=== PATIENT | female | born 2005 | race Asian ===

== ENCOUNTER 2024-02-21 00:57 | Emergency (ER) | payer MEDICAID, SELFPAY ==
[2024-02-21 00:59] VITALS: BP 98/66
--- NOTE | 2024-02-21 01:13 | ED.GENMED ---
Addendum entered and electronically signed by Remington Rizo PA-C 02/24/24 07:15:
Urine culture shows Klebsiella ESBL. This was resistant to the Keflex she was placed on. Happens to be sensitive to Augmentin. Prescription for Augmentin was called in. Spoke with the patient's regarding these results
Original Note:
History of Present Illness
<KENDY Swenson - Last Filed: 02/21/24 17:59>
General
Chief Complaint: Problems
Source: patient, spouse and doctor of veterinary medicine (Spouse)
Exam Limitations: other (Language barrier)
Time Seen by Provider: 02/21/24 01:04
History of Present Illness
History of Present Illness:
This is a 18 year old female that comes in with c/o right lower abd pain. States that she started with pain about 1.5 hours ago. States that she took Tylenol 650mg at home. States that it is a cramping like when she had a period. Denies any
bleeding. States that her last period was Oct 25. Denies any fever, chills, chest pain, SOB, nausea, vomiting, diarrhea, headache, dizziness, urinary burning.
Past History
<KENDY Swenson - Last Filed: 02/21/24 17:59>
Past History
ED Past Medical History: None; Negative Asthma, HTN, Hypercholesterolemia or NIDDM
ED Past Surgical History: None
Social History
Tobacco: Non-smoker
Alcohol: None
Personal:
Living: with family
Review of Systems
<KENDY Swenson - Last Filed: 02/21/24 17:59>
Review of Systems
All Other Systems: ROS reviewed and negative except as documented in HPI and ROS
Constitutional: Reports no symptoms; Denies fever or chills
EENT: Reports no symptoms
Respiratory: Reports no symptoms; Denies cough or trouble breathing
Cardiac: Reports no symptoms; Denies chest pain
ABD/GI: Reports abdominal pain; Denies nausea, vomiting or diarrhea
: Reports no symptoms; Denies dysuria, frequency, urgency or bleeding
Musculoskeletal: Reports no symptoms
Skin: Reports no symptoms
Neurological: Reports no symptoms; Denies dizzy or headache
Psychiatric: Reports no symptoms
Phy Exam
<KENDY Swenson - Last Filed: 02/21/24 17:59>
General Physical Exam
General Presentation: mild distress
General age: appears stated age
General Skin: warm and dry
General Habitus: normal
General Mental: alert
General Hydration: appears well hydrated
ENT Exam
ENT Exam: TM's normal, pharynx normal and neck supple
Eye Exam
Eye Exam: EOMI
Cardiovascular Exam
Cardiovascular Exam: regular rate/rhythm, no edema, no murmur and normal peripheral pulses
Pulmonary Exam
Pulmonary Exam: lungs clear, no respiratory distress, no rales, chest non tender, no crackles, no rhonchi, no wheezing and no cough
Gastrointestinal Exam
Gastrointestinal Exam: normal bowel sounds, non tender, soft, no organomegaly, no pulsatile mass and non distended
Musculoskeletal Exam
Musculoskeletal Exam: full ROM and no edema
Skin Exam
Skin Exam: normal color, warm/dry, no rash and no petechia
Psychiatric Exam
Psychiatric Exam: normal mood/affect
Course
<KENDY Swenson - Last Filed: 02/21/24 17:59>
Orders/Labs/Results
Orders:
Orders
02/21/24 01:12
0.9% Sodium Chloride 1000 ml [Nss] 1,000 ml IV BOLUS
US Limited Urgent
Reason For Exam: rIGHT LOWER ABD PAIN
02/21/24 01:19
US Abdomen - Appendix Only Urgent
Comment:
Reason For Exam: Right lower abd pain
02/21/24 01:30
Blood Group&Type Urgent
Beta HCG Quantitative Urgent
Is this a screen?: No
Complete Blood Count/With Diff Urgent
Comprehensive Metabolic Panel Urgent
02/21/24 02:10
ABO2 Urgent
BBK Wristband Number:
Associate notified that ABO2 has been ordered: [id number]
Date: 02/21/24
Time: 01:39
[employer]S Le[employer] Dress Belt Maker ID: [id number]
02/21/24 02:50
Renal & Bladder US [US Renal With Bladder] Urgent
Comment:
Reason For Exam: Right sided abd pain
02/21/24 03:58
Urinalysis Reflex To Culture Urgent
Specimen Description:
Date Specimen was Collected: 02/21/24
Time Specimen was Collected: 01:15
Urine Microscopic Reflex Cult Urgent
Urine Culture Urgent
ALAINA Source: U
Specimen Description:
Date Specimen was Collected: 02/21/24
Time Specimen was Collected: 01:15
02/21/24 05:00
Cephalexin Monohydrate [Keflex] 500 mg PO NOW STA
Abnormal Lab Results
02/21/24 02/21/24
01:30 03:58
RBC 3.53 L 10^6/uL
(4.20-5.40)
Hgb 11.8 L g/dL
(12.0-16.0)
Hct 32.5 L %
(37.0-47.0)
MCH 33.4 H pg
(27.0-31.0)
Absolute Neuts (auto) 7.4 H 10^3/uL
(1.4-6.5)
Absolute Monos (auto) 0.9 H 10^3/uL
(0.1-0.6)
Lymphocytes % 16.6 L %
(20.5-51.1)
Carbon Dioxide 21 L mmol/L
(22-30)
Creatinine 0.4 L mg/dL
(0.6-1.0)
Total Protein 5.9 L g/dl
(6.3-8.2)
Albumin 3.4 L g/dl
(3.5-5.0)
Ur Occult Blood Reflex 4+ A
(Negative)
Urine Nitrite (Reflex) Positive A
(Negative)
Leukocyte Esterase Rfl 2+ A
(Negative)
Urine RBC 16-20 A /HPF
(0-2)
Urine WBC (Reflex) 50-60 A /HPF
(0-5)
Urine Bacteria (Reflex) Many A
(Negative)
Urine Albumin (Reflex) 1+ A
(Neg - Trace)
02/21/24 01:30
02/21/24 01:30
H/H slightly low, carbon dioxide slightly low. Total protein Slightly low. Albumin very slightly low. B positive,
Vital Signs
Initial and Last Documented VS:
Initial Vital Signs
Temp Pulse Resp BP Pulse Ox
97.6 F 92 20 98/66 98
02/21/24 00:59 02/21/24 00:59 02/21/24 00:59 02/21/24 00:59 02/21/24 00:59
Last Documented Vital Signs
Temp Pulse Resp BP Pulse Ox
97.6 F 88 16 99/67 99
02/21/24 00:59 02/21/24 05:15 02/21/24 05:15 02/21/24 05:15 02/21/24 05:15
<Dori Cheng DO - Last Filed: 02/21/24 06:29>
Orders/Labs/Results
Orders:
Orders
02/21/24 01:12
0.9% Sodium Chloride 1000 ml [Nss] 1,000 ml IV BOLUS
US Limited Urgent
Reason For Exam: rIGHT LOWER ABD PAIN
02/21/24 01:19
US Abdomen - Appendix Only Urgent
Comment:
Reason For Exam: Right lower abd pain
02/21/24 01:30
Blood Group&Type Urgent
Beta HCG Quantitative Urgent
Is this a screen?: No
Complete Blood Count/With Diff Urgent
Comprehensive Metabolic Panel Urgent
02/21/24 02:10
ABO2 Urgent
BBK Wristband Number:
Associate notified that ABO2 has been ordered: [id number]
Date: 02/21/24
Time: 01:39
Men'S Leather Dress Belt Maker ID: [id number]
02/21/24 02:50
Renal & Bladder US [US Renal With Bladder] Urgent
Comment:
Reason For Exam: Right sided abd pain
02/21/24 03:58
Urinalysis Reflex To Culture Urgent
Specimen Description:
Date Specimen was Collected: 02/21/24
Time Specimen was Collected: 01:15
Urine Microscopic Reflex Cult Urgent
Urine Culture Urgent
ALAINA Source: U
Specimen Description:
Date Specimen was Collected: 02/21/24
Time Specimen was Collected: 01:15
02/21/24 05:00
Cephalexin Monohydrate [Keflex] 500 mg PO NOW STA
Abnormal Lab Results
02/21/24 02/21/24
01:30 03:58
RBC 3.53 L 10^6/uL
(4.20-5.40)
Hgb 11.8 L g/dL
(12.0-16.0)
Hct 32.5 L %
(37.0-47.0)
MCH 33.4 H pg
(27.0-31.0)
Absolute Neuts (auto) 7.4 H 10^3/uL
(1.4-6.5)
Absolute Monos (auto) 0.9 H 10^3/uL
(0.1-0.6)
Lymphocytes % 16.6 L %
(20.5-51.1)
Carbon Dioxide 21 L mmol/L
(22-30)
Creatinine 0.4 L mg/dL
(0.6-1.0)
Total Protein 5.9 L g/dl
(6.3-8.2)
Albumin 3.4 L g/dl
(3.5-5.0)
Ur Occult Blood Reflex 4+ A
(Negative)
Urine Nitrite (Reflex) Positive A
(Negative)
Leukocyte Esterase Rfl 2+ A
(Negative)
Urine RBC 16-20 A /HPF
(0-2)
Urine WBC (Reflex) 50-60 A /HPF
(0-5)
Urine Bacteria (Reflex) Many A
(Negative)
Urine Albumin (Reflex) 1+ A
(Neg - Trace)
02/21/24 01:30
02/21/24 01:30
Vital Signs
Initial and Last Documented VS:
Initial Vital Signs
Temp Pulse Resp BP Pulse Ox
97.6 F 92 20 98/66 98
02/21/24 00:59 02/21/24 00:59 02/21/24 00:59 02/21/24 00:59 02/21/24 00:59
Last Documented Vital Signs
Temp Pulse Resp BP Pulse Ox
97.6 F 88 16 99/67 99
02/21/24 00:59 02/21/24 05:15 02/21/24 05:15 02/21/24 05:15 02/21/24 05:15
Information
Weeks gestation: Weeks: (16 6/7 weeks)
Location: Location: ([facility])
<KENDY Swenson - Last Filed: 02/21/24 17:59>
MDM/Problems Addressed
Differential Diagnosis Includes:
Ruptured ovarian cyst. Muscle stretching, Appendicitis
MDM/Problems Addressed:
This is a 18 year old female that comes in with c/o right lower abd pain. Patient States that this started about 1.5 hours before coming. States that her last Period was Oct 25. Denies any vaginal bleeding.
Will check labs and get US of appendix and Pelvic ultrasound. Denies any pain with abd palpation. States that the pain is inside.
Chronic conditions affecting care:
NA
Acute Exacerbation and/or Progression of Chronic Illness:
Na
<KENDY Swenson - Last Filed: 02/21/24 17:59>
*Pulse Oximetry
Patient hypoxic: no
*EKG
Interpreted by ED Provider?: NA
Rate: EKG- N/A
*Doctor Of Veterinary Medicine Interpretation
Rate: Doctor Of Veterinary Medicine- N/A
*Critical Care Note
Total Time (30-74mins, 75-104mins- exclusive of procedures): Not Applicable
<Dori Cheng DO - Last Filed: 02/21/24 06:29>
*Radiology
Radiology exam reviewed: radiology read reviewed
ED Attending Note
<KENDY Swenson - Last Filed: 02/21/24 17:59>
-
Portions of this chart may have been created with voice recognition software.� Occasional wrong word or��sound alike� substitutions may have occurred due to the inherent limitations of voice recognition software.
<Dori Cheng DO - Last Filed: 02/21/24 06:29>
ED Attending Note
Patient seen and examined by attending physician: Yes
I performed the substantive portion of visit, reviewed & personally made and approve the management plan that is documented in note by myself or DENISA.: Yes
ED Attending Note:
This is a 18-year-old female, 1 para 0 currently 16 weeks, 6 days with first day last menstrual period October 25.
She presents with right lower quadrant pain that began somewhat abruptly tonight, nonradiating, worse with movement. No other associated symptoms.
She follows with [facility], has had 1 initial visit and has a follow-up visit scheduled for later today.
She has not had a fever nor chills. No nausea or vomiting. No diarrhea or constipation. No back pain no flank pain. She denies dysuria nor urgency nor hematuria. She does admit to intermittent urinary frequency.
Overall nontoxic in appearance. Sleeps when undisturbed.
Vital signs within normal limits.
is accompanying and he is interpreting for patient.
Abdomen is soft, nondistended without appreciable tenderness. No CVA tenderness. Fundus palpable 3 to 4 cm below umbilicus.
Labs thus far unremarkable.
ultrasound shows single viable IUP. Size consistent with dates. Normal ovaries bilaterally with good flow demonstrated bilaterally. No adnexal masses nor cyst. No pelvic free fluid.
Renal ultrasound is unremarkable, no hydronephrosis nor renal mass and bilateral ureteral jets are visualized.
Right lower quadrant�appendix not visualized. No regional mass nor fluid collection nor appreciable free fluid.
It is reassuring that patient has no appreciable abdominal tenderness on exam. Appendicitis is unlikely.
There is still some concern for UTI. Urinalysis is pending.
Other consideration is round ligament pain.
05:00
Urinalysis consistent with UTI.
Pt continues to appear comfortable with no appreciable abdominal tenderness on exam.
Will treat with a course of Keflex.
Urine culture is pending.
Discussed importance of staying well hydrated on a daily basis.
Follow u with [facility] today as already scheduled.
Discharge Plan
Departure
Patient Disposition: Home (Routine Discharge)
Date of Disposition: 02/21/24
Time of Disposition: 05:13
Patient with high blood pressure during this ER visit?: No
Condition: Good
Discharge Problem:
Second trimester , Abdominal pain during , Urinary tract infection affecting
Instructions: Urinary tract infections in
Prescriptions:
New
cephalexin 500 mg capsule
500 mg PO TID 7 Days Qty: 21 0RF
Referrals:
Sandra Cabral MD [Family Provider] -
Activity Restrictions/Additional Instructions:
Follow up with your test driver today as already scheduled.
Interventions
Interventions:
*Risk Screen - Suicide Last Done: 02/21/24 00:59
*General Assessment Last Done: 02/21/24 01:43
*Neglect/Abuse Screening Last Done: 02/21/24 00:59
ED- Fall Risk Assessment Last Done: 02/21/24 05:25
*ED COVID-19 Vaccine History Last Done: 02/21/24 01:43
*Nursing Disposition Last Done: 02/21/24 05:25
ZW-Klsvsr-Qrrlbiwbyx Assessment Last Done: 02/21/24 01:46
ED-Female Genitourinary Assessment Last Done: 02/21/24 01:47
Discharge Date and Time
Discharge Date/Time: 02/21/24 05:25
Print Language: DANISH
[2024-02-21] MEDS: NSS 1000 IV (01:31)
[2024-02-21 01:38] LABS: % Basophils 0.2 % (0-2); % Eosinophils 0.9 % (0-6); % Immature Granulocytes 0.3 % (0-0.5); % Lymphocytes 16.6 % (20.5-51.1); % Monocytes 8.7 % (1.7-9.3); % Neutrophils 73.3 % (42.2-75.2); Absolute Eosinophils 0.1 10^3/uL (0-0.7); Absolute Lymphocytes 1.7 10^3/uL (1.2-3.4); Absolute Monocytes 0.9 10^3/uL (0.1-0.6); Absolute Neutrophils 7.4 10^3/uL (1.4-6.5); Hematocrit 32.5 % (37.0-47.0); Hemoglobin 11.8 g/dL (12.0-16.0); Mean Corp Hgb Conc. 36.3 g/dL (33.0-37.0); Mean Corpuscular Hgb 33.4 pg (27.0-31.0); Mean Corpuscular Volume 92.1 fL (81.0-99.0); Mean Platelet Volume 9.3 fL (7.4-10.4); Nucleated Red Blood Cells % 0 %; Platelet Count 277 10^3/uL (130-400); Red Blood Cell Count 3.53 10^6/uL (4.20-5.40); Red Cell Dist. Width 12.3 % (11.5-14.5); White Blood Cell Count 10.1 10^3/uL (4.8-10.8)
[2024-02-21 01:53] LABS: ALT (SGPT) 17 U/L (0-35); AST (SGOT) 21 U/L (14-36); Albumin 3.4 g/dl (3.5-5.0); Alkaline Phosphatase 73 U/L (38-126); Blood Urea Nitrogen 9 mg/dl (7-17); Carbon Dioxide 21 mmol/L (22-30); Chloride 106 mmol/L (98-107); Glucose 87 mg/dl (70-99); Potassium 3.5 mmol/L (3.5-5.1); Sodium 136 mmol/L (135-145); Total Bilirubin 0.3 mg/dl (0.2-1.3); Total Protein 5.9 g/dl (6.3-8.2); eGFR > 60.00
[2024-02-21 03:45] VITALS: BP 91/52
[2024-02-21 04:21] LABS: Urine Albumin 1+ (Neg - Trace); Urine Bilirubin Negative (Negative); Urine Character Slightly Cloudy (Clear); Urine Color Yellow; Urine Glucose Negative (Negative); Urine Ketone Negative (Negative); Urine Leukocyte 2+ (Negative); Urine Nitrite Positive (Negative); Urine Occult Blood 4+ (Negative); Urine Specific Gravity 1.015 (<1.030); Urine Urobilinogen Negative (Neg - 1+)
[2024-02-21 04:42] LABS: Urine Red Blood Cell 16-20 /HPF (0-2); Urine White Cell 50-60 /HPF (0-5)
[2024-02-21 04:43] LABS: Urine Bacteria Many (Negative)
[2024-02-21] MEDS: KEFLEX 500 MG PO (05:08)
[2024-02-21 05:15] VITALS: BP 99/67
== END 2024-02-21 05:25 | disposition home or self-care (01) ==
LOC: EMR 00:57
PROVIDERS: Clinical Nurse Specialist Family Health; EMERGENCY PHYSICIAN Emergency Medicine; FAMILY PHYSICIAN Family Medicine
DX: O23.42 Unspecified infection of urinary tract in pregnancy, second trimester (principal); N39.0 Urinary tract infection, site not specified; O26.892 Other specified pregnancy related conditions, second trimester; R10.31 Right lower quadrant pain; Z3A.16 16 weeks gestation of pregnancy
CPT/HCPCS: 96360; 99284; 76705; 76770; 76815; 80053; 81003; 81015; 84702; 85025; 86900; 86901; 87077; 87086; 87186

== ENCOUNTER 2024-07-22 16:44 | Observation (INO) | payer MEDICAID, SELFPAY ==
[2024-07-22 16:51] VITALS: BMI 24.9
[2024-07-22 16:54] VITALS: BP 109/73
[2024-07-22 18:30] LABS: % Basophils 0.2 % (0-2); % Immature Granulocytes 0.5 % (0-0.5); % Lymphocytes 7.7 % (20.5-51.1); % Monocytes 8.7 % (1.7-9.3); % Neutrophils 82.9 % (42.2-75.2); Absolute Immature Granulocytes 0.1 10^3/uL (0-0.05); Absolute Lymphocytes 1.3 10^3/uL (1.2-3.4); Absolute Monocytes 1.4 10^3/uL (0.1-0.6); Absolute Neutrophils 13.5 10^3/uL (1.4-6.5); Hematocrit 35.6 % (37.0-47.0); Hemoglobin 12.5 g/dL (12.0-16.0); Mean Corp Hgb Conc. 35.1 g/dL (33.0-37.0); Mean Corpuscular Hgb 31.3 pg (27.0-31.0); Mean Corpuscular Volume 89.2 fL (81.0-99.0); Mean Platelet Volume 9.6 fL (7.4-10.4); Nucleated Red Blood Cells % 0 %; Platelet Count 269 10^3/uL (130-400); Red Blood Cell Count 3.99 10^6/uL (4.20-5.40); Red Cell Dist. Width 14.3 % (11.5-14.5); White Blood Cell Count 16.3 10^3/uL (4.8-10.8)
[2024-07-22 18:30] LABS: Urine Albumin 2+ (Neg - Trace); Urine Bilirubin Negative (Negative); Urine Character Clear (Clear); Urine Color Yellow; Urine Glucose Negative (Negative); Urine Ketone 3+ (Negative); Urine Leukocyte 3+ (Negative); Urine Nitrite Negative (Negative); Urine Occult Blood Negative (Negative); Urine Urobilinogen 1+ (Neg - 1+)
[2024-07-22 18:42] LABS: ALT (SGPT) 24 U/L (0-35); AST (SGOT) 30 U/L (14-36); Albumin 3.5 g/dl (3.5-5.0); Alkaline Phosphatase 217 U/L (38-126); Blood Urea Nitrogen 7 mg/dl (7-17); Calcium 9.4 mg/dl (8.4-10.2); Carbon Dioxide 17 mmol/L (22-30); Chloride 106 mmol/L (98-107); Estimated Creatinine Clearance > 125 ml/min; Glucose 69 mg/dl (70-99); Potassium 3.8 mmol/L (3.5-5.1); Sodium 133 mmol/L (135-145); Total Bilirubin 0.8 mg/dl (0.2-1.3); Total Protein 6.4 g/dl (6.3-8.2); eGFR > 60.00
[2024-07-22 18:46] LABS: Urine Mucus Few; Urine Squamous Cell 26-30 /LPF (Few)
[2024-07-22 18:47] LABS: Urine Bacteria Few (Negative); Urine Red Blood Cell 0-2 /HPF (0-2)
[2024-07-22 19:52] LABS: COVID-19 Antigen Negative (Negative)
[2024-07-22] MEDS: TYLENOL 650 MG PO (20:00)
[2024-07-22] MEDS: LR 1000 IV (20:45)
== END 2024-07-22 23:15 | disposition home or self-care (01) ==
LOC: LDRP 16:44
PROVIDERS: ADMITTING PHYSICIAN Obstetrics & Gynecology
DX: O98.513 Other viral diseases complicating pregnancy, third trimester (principal); B34.9 Viral infection, unspecified; Z3A.38 38 weeks gestation of pregnancy; M54.9 Dorsalgia, unspecified; R50.9 Fever, unspecified; R53.1 Weakness; R51.9 Headache, unspecified; Z60.3 Acculturation difficulty
CPT/HCPCS: 36415; 80053; 81003; 81015; 85025; 86850; 86900; 86901; 87077; 87086; 87147; 87502; 87811; G0378

== ENCOUNTER 2024-07-24 09:39 | Inpatient (IN) | payer OTHER, SELFPAY ==
[2024-07-24 09:52] VITALS: BP 118/69; BMI 24.8
[2024-07-24] MEDS: STADOL 1 MG IV (12:44)
[2024-07-24] MEDS: LR 1000 IV (12:44)
[2024-07-24 13:12] LABS: % Basophils 0.3 % (0-2); % Eosinophils 0.1 % (0-6); % Immature Granulocytes 0.5 % (0-0.5); % Lymphocytes 10.2 % (20.5-51.1); % Monocytes 6.7 % (1.7-9.3); % Neutrophils 82.2 % (42.2-75.2); Absolute Immature Granulocytes 0.1 10^3/uL (0-0.05); Absolute Lymphocytes 1.1 10^3/uL (1.2-3.4); Absolute Monocytes 0.7 10^3/uL (0.1-0.6); Hematocrit 36.4 % (37.0-47.0); Hemoglobin 12.4 g/dL (12.0-16.0); Mean Corp Hgb Conc. 34.1 g/dL (33.0-37.0); Mean Corpuscular Hgb 31.2 pg (27.0-31.0); Mean Corpuscular Volume 91.7 fL (81.0-99.0); Mean Platelet Volume 10.1 fL (7.4-10.4); Nucleated Red Blood Cells % 0 %; Platelet Count 262 10^3/uL (130-400); Red Blood Cell Count 3.97 10^6/uL (4.20-5.40); Red Cell Dist. Width 14.4 % (11.5-14.5); White Blood Cell Count 10.9 10^3/uL (4.8-10.8)
[2024-07-24 13:18] LABS: Urine Albumin 1+ (Neg - Trace); Urine Bilirubin Negative (Negative); Urine Character Clear (Clear); Urine Color Yellow; Urine Glucose Negative (Negative); Urine Ketone 3+ (Negative); Urine Leukocyte 1+ (Negative); Urine Nitrite Negative (Negative); Urine Occult Blood 1+ (Negative); Urine Urobilinogen Negative (Neg - 1+)
[2024-07-24 15:15] LABS: Urine Squamous Cell >30 /LPF (Few)
[2024-07-24 15:16] LABS: Urine Amorphous Seen
[2024-07-24 15:17] LABS: Urine Red Blood Cell 0-2 /HPF (0-2); Urine White Cell 0-2 /HPF (0-5)
[2024-07-24] MEDS: SUBLIMAZE 100 MCG EPIDURAL (16:11)
[2024-07-24] MEDS: FENTANYL/BUPIVACAINE 100 EPIDURAL (16:11)
[2024-07-24] MEDS: TYLENOL 1000 MG PO (22:22)
[2024-07-24] MEDS: BICITRA 30 ML PO (22:40)
[2024-07-24] MEDS: ANCEF 10 IV (22:40)
[2024-07-24 23:13] LABS: Cord ABG Comment CORD BLOOD
[2024-07-24 23:15] LABS: B.E. Cord ABG -3.9 mMOL/L; HCO3 Cord ABG 23.5 mmol/L; O2 Saturation % Cord ABG 44.6 %; PCO2 Cord ABG 50 mmHg; PO2 Cord ABG 22 mmHg; pH Cord ABG 7.28
[2024-07-24 23:17] LABS: B.E. Cord ABG -5.6 mMOL/L; HCO3 Cord ABG 21.6 mmol/L; O2 Saturation % Cord ABG 59.5 %; PCO2 Cord ABG 47 mmHg; PO2 Cord ABG 32 mmHg; pH Cord ABG 7.27
[2024-07-24 23:47] VITALS: BP 109/54
[2024-07-25] VITALS: BP 116/64
[2024-07-25 00:04] VITALS: BP 106/69
[2024-07-25] MEDS: MORPHINE SULFATE 2 MG IV ×2 (00:06→02:21)
[2024-07-25] MEDS: BENADRYL 25 MG IV (00:07)
[2024-07-25 00:15] VITALS: BP 112/68
[2024-07-25 00:21] VITALS: BP 110/69
[2024-07-25] MEDS: TORADOL 15 MG IV ×3 (05:08→17:38)
[2024-07-25 05:32] LABS: Hematocrit 31.5 % (37.0-47.0); Mean Corp Hgb Conc. 34.9 g/dL (33.0-37.0); Mean Corpuscular Hgb 31.5 pg (27.0-31.0); Mean Corpuscular Volume 90.3 fL (81.0-99.0); Mean Platelet Volume 9.8 fL (7.4-10.4); Platelet Count 216 10^3/uL (130-400); Red Blood Cell Count 3.49 10^6/uL (4.20-5.40); Red Cell Dist. Width 14.2 % (11.5-14.5)
--- NOTE | 2024-07-25 07:38 | W.PN.ANS.POP ---
Anesthesia Post Operative
- Anesthesia Post Op Note
Vital Signs Stable-See Nursing Note: Yes
Airway Patent: Yes
Adequate Pain Control: Yes
Change in Mental Status: No
Current Postoperative Nausea & Vomiting: No
Anesthesia Complications: No
General Anesthetic Recall: No (n/a c section)
Unplanned Admission: No
Post Op Hydration Adequate: Yes
[2024-07-25] MEDS: PRENATAL PLUS PO (11:18)
[2024-07-25 14:39] LABS: Syphilis/T. pallidum Ab Reflex Negative (Negative)
[2024-07-25] MEDS: PERCOCET 5/325 1 TABLET PO ×2 (15:31→21:09)
[2024-07-26] MEDS: TORADOL 15 MG IV (00:25)
--- NOTE | 2024-07-26 04:20 | DOWNTIME ---
Addendum entered and electronically signed by Bea Gonzales RN 07/26/24 14:04:
Correction: Downtime was 07/26/2024 from 0100 to 07/26/2024 at 0415
Original Note:
There was a Stylewhile Client Route Process Administrator Downtime on 07/25/2024 from 0100 to 07/26/2024 at 0415. Downtime documentation of patient's care, including medication administrations, has been reconciled in the electronic record per guidelines. Refer to the
patient's paper chart under the miscellaneous tab to see printed paper medication records and downtime forms.
[2024-07-26] MEDS: MOTRIN 600 MG PO ×4 (05:09→23:24)
[2024-07-26] MEDS: PERCOCET 5/325 2 TABLET PO (05:09)
[2024-07-26] MEDS: SENOKOT-S 1 TABLET PO (08:41)
[2024-07-26] MEDS: PRENATAL PLUS 1 TABLET PO (08:41)
[2024-07-26] MEDS: PERCOCET 5/325 1 TABLET PO ×2 (11:28→16:49)
[2024-07-26] MEDS: MYLICON 80 MG PO (16:49)
[2024-07-27] MEDS: MOTRIN 600 MG PO (08:00)
[2024-07-27] MEDS: SENOKOT-S 1 TABLET PO (08:00)
[2024-07-27] MEDS: TYLENOL 650 MG PO (08:00)
[2024-07-27] MEDS: PRENATAL PLUS 1 TABLET PO (08:00)
--- NOTE | 2024-07-27 10:13 | W.DS.TRANS ---
DC Summary - Mirror Inspector
-
Discharge Instructions:
Discharge Diagnosis/Procedures primary cs
Instructions:
Stand-Alone Forms: LDRP Delivery
Changes to Home Medications: No
Discharge Medications:
DC Medications w/original date entered in [facility]
prenat.vits,sabi,qkb-ryys-vusra 1 tab PO DAILY 07/24/24
ibuprofen 600 mg tablet 600 mg PO Q6HPRN PRN cramps #90 tabs 07/27/24
Home Medication Changes
Pending Results: No
Total time spent discharging patient (in min): 15
== END 2024-07-27 14:18 | disposition home or self-care (01) | DRG 788 ==
LOC: LDRP 09:39
PROVIDERS: ADMITTING PHYSICIAN Obstetrics & Gynecology
PROC: 10D00Z1 Extraction of Products of Conception, Low, Open Approach (ICD-10-PCS; 2024-07-24)
DX: O76 Abnormality in fetal heart rate and rhythm complicating labor and delivery (principal); Z37.0 Single live birth; Z3A.38 38 weeks gestation of pregnancy; O77.0 Labor and delivery complicated by meconium in amniotic fluid
CPT/HCPCS: 88307; 81003; 81015; 82803; 85025; 85027; 86780; 86850; 86900; 86901; 87077; 87086; 87147

== ENCOUNTER 2024-07-30 23:28 | Inpatient (IN) | payer OTHER, SELFPAY ==
[2024-07-30 18:20] VITALS: BP 123/81
[2024-07-30] MEDS: MOTRIN 600 MG PO (18:31)
[2024-07-30 18:53] LABS: COVID-19 Antigen Negative (Negative)
--- NOTE | 2024-07-30 19:06 | ED.GENMED ---
History of Present Illness
General
Chief Complaint: Fever
Time Seen by Provider: 07/30/24 18:47
History of Present Illness
History of Present Illness:
TIME OF INITIAL EVALUATION
- 7 PM
REVIEW OF OLD RECORDS
- I reviewed records, the patient delivered a few days ago complicated by borderline fever and tachycardia
Note:
CHIEF COMPLAINT(S)
Fever and sore throat.
HISTORY OF PRESENT ILLNESS
The patient is a 19-year-old female who presented with fever and sore throat. She had been experiencing fever since before her , which occurred around midnight on July 24. Initially, her fever resolved post-delivery but recurred today. A
sore throat developed after the delivery. She reports having been tired and feeling cold since the . There is notable tenderness in her abdomen, particularly when touched. She does not report any significant cough but is hesitant to undergo
abdominal examination due to discomfort. She denies any foul-smelling vaginal discharge, noting only minor blood discharge [id number]-X-iwxyyjt. Urinary symptoms were not explicitly mentioned. The patient has not had a strep throat test during this
episode, and a rapid COVID-19 test was negative.
ADDITIONAL HISTORY OBTAINED FROM SOURCES OTHER THAN THE PATIENT
According to a family member, the patient seemed tired and cold since delivery.
PHYSICAL EXAM
Nursing notes reviewed and vital signs reviewed.
- Throat: No obvious abscess noted on inspection.
- Abdomen: Significant tenderness, particularly on palpation of the lower abdomen near the site.
- General: Appears tired
- HEENT: Moist oral mucosa
- Cardiovascular: No murmurs, tachycardic heart rate, regular rhythm, No chest wall tenderness
- Pulmonary: No respiratory distress, breath sounds are clear and equal
- Neurologic: Excellent strength all extremities, no coordination deficits
- Psychiatric: Difficult to assess given language barrier, the patient appears somewhat lethargic
- Extremities: Nontender, no edema, moves all extremities equally
- Skin: No rash, no lesions
IMMUNIZATION HISTORY
The patient has received standard vaccinations except for COVID-19.
PLAN
Order bloodwork and anticipate imaging with a CT scan to further investigate abdominal tenderness. Conduct a strep test to evaluate sore throat symptoms.
DIFFERENTIAL DIAGNOSIS
The Differential Diagnosis includes, in no particular order and is not limited to:
1. infection
2. Streptococcal pharyngitis
3. Viral pharyngitis
4. Bacterial tracheitis
5. Endometritis
6. Respiratory tract infection
7. Urinary tract infection
8. Abscess
9. Viral syndrome
10. Pelvic inflammatory disease
Disposition:
SUMMARY OF ENCOUNTER
The patient, a 19-year-old female, presented to the emergency department with a fever and sore throat following a . There was a notable fever that resolved post-delivery but recurred. A CT scan showed some abnormality which could be related
to pgiq-I-ypuniac changes, but the fever prompted further investigation. A high white blood cell count was noted, consistent with previous levels recorded during her last visit. COVID-19, influenza, and strep tests were negative. The patients
discomfort and symptoms required consultation with an OB-FARM BUTCHER, particularly due to fever and abdominal tenderness.
INDEPENDENT REVIEW OF LABS AND INTERPRETATION OF TESTS
My independent review of the CBC shows a high white blood cell count. COVID-19, influenza, and strep tests came back negative. A CT scan showed some abnormalities possibly related to rgqs-G-gejiody changes, raising concerns.
ADDITIONAL TESTING AND IMAGING CONSIDERED
Consideration for further imaging or additional tests was evident due to persistent symptoms and abnormal CT findings.
MEDICAL DECISION MAKING
1. Number & Complexity of Problems: The differential diagnosis included infection, respiratory tract infection, and endometritis.
2. Data Reviewed: Category 1 included labs and imaging ordered and reviewed.
3. Risk: Consideration of admission/observation was made due to the complexity and potential risk factors, but further input from OB-FARM BUTCHER was needed to guide management. The patient was not on any antibiotics, which was noted in the management plan.
PATHOLOGIES TO CONSIDER
- infection
- Endometritis
- Sepsis (given the fever and leukocytosis)
RADIOLOGY
- CT shows heterogeneous fluid possibly blood products and infection/endometritis cannot be excluded
EKG
-
LABS
- White count 16.0, hemoglobin 9.8, platelets elevated, bicarb 19
UPDATE
- Dr. Barrios evaluated in the emergency department recommends admission to the hospital to her service with gentamicin, clindamycin, and ampicillin�I have ordered initial dosing.
Past History
Past History
ED Past Medical History: None; Negative Asthma, HTN, Hypercholesterolemia or NIDDM
ED Past Surgical History: None
Social History
Tobacco: Non-smoker
Alcohol: None
Personal:
Living: with family
Phy Exam
Physical Exam
Physical Exam:
See HPI
Sepsis
Sepsis Screening
Sepsis Assessment: Sepsis
Sepsis Screen
Sepsis Screen: Sepsis
Date: 07/30/24
Time: 23:13
Course
Orders/Labs/Results
Orders:
Orders
07/30/24 18:28
Ibuprofen [Motrin] 600 mg PO NOW STA
07/30/24 18:29
COVID-19 Antigen Urgent
Source: Nasal Swab
Influenza A+B Rapid Molecular Urgent
ALAINA Source: Nasal Swab
Specimen Description:
07/30/24 19:12
Rapid Strep Group A Urgent
ALAINA Source: Throat/Pharynx
Specimen Description:
Date Specimen was Collected: 07/30/24
Time Specimen was Collected: 19:10
Throat Culture [Throat Culture, Comprehensive] Urgent
ALAINA Source: Throat/Pharynx
Specimen Description:
Date Specimen was Collected: 07/30/24
Time Specimen was Collected: 19:10
07/30/24 19:18
CT Abd/pelvis W Iv Cont Urgent
Comment:
Reason For Exam: lowerabd pn after C/S 7d ago; hcg / cr not needed
07/30/24 19:30
Complete Blood Count/With Diff Urgent
Comprehensive Metabolic Panel Urgent
Lactic Acid Q4H
Comment: CANCEL 2nd LACTIC ACID IF 1st LACTIC ACID IS LESS THAN 2
Blood Culture Q30M
ALAINA Source: Blood/Venous
Specimen Description:
07/30/24 22:42
Urinalysis Reflex To Culture Urgent
Date Specimen was Collected: 07/30/24
Time Specimen was Collected: 22:37
Urine Microscopic Reflex Cult Urgent
Urine Culture Urgent
ALAINA Source: U
Specimen Description:
Obtained by: Random
Date Specimen was Collected: 07/30/24
Time Specimen was Collected: 22:37
07/30/24 22:50
Blood Culture Q30M
ALAINA Source: Blood/Venous
Specimen Description:
07/30/24 23:00
Flush (0.9% Sodium Chloride) [Flush (Nss)] See Dose Instructions IV PER PROTOCOL
07/30/24 23:09
Gentamicin Sulfate [Gentamicin] 340 mg 0.9% Sodium Chloride [Nss] 50 ml IV NOW
Abnormal Lab Results
07/30/24 07/30/24
19:30 22:42
WBC 16.0 H 10^3/uL
(4.8-10.8)
RBC 3.18 L 10^6/uL
(4.20-5.40)
Hgb 9.8 L g/dL
(12.0-16.0)
Hct 28.6 L %
(37.0-47.0)
Plt Count 451 H D 10^3/uL
(130-400)
Abs Immat Gran (auto) 0.3 H 10^3/uL
(0-0.05)
Absolute Neuts (auto) 13.4 H 10^3/uL
(1.4-6.5)
Absolute Monos (auto) 0.9 H 10^3/uL
(0.1-0.6)
Immature Gran % 1.7 H %
(0-0.5)
Neutrophils % 83.3 H %
(42.2-75.2)
Lymphocytes % 8.7 L %
(20.5-51.1)
Chloride 114 H mmol/L
(98-107)
Carbon Dioxide 19 L mmol/L
(22-30)
Creatinine 0.5 L mg/dL
(0.6-1.0)
Calcium 8.2 L mg/dl
(8.4-10.2)
AST 52 H U/L
(14-36)
ALT 55 H U/L
(0-35)
Alkaline Phosphatase 233 H U/L
(38-126)
Total Protein 5.7 L g/dl
(6.3-8.2)
Albumin 3.0 L g/dl
(3.5-5.0)
Urine Ketones 3+ A
(Negative)
Ur Occult Blood Reflex 4+ A
(Negative)
Leukocyte Esterase Rfl 1+ A
(Negative)
Urine RBC 3-6 A /HPF
(0-2)
Urine Bacteria (Reflex) Few A
(Negative)
07/30/24 19:30
07/30/24 19:30
Vital Signs
Initial and Last Documented VS:
Initial Vital Signs
Temp Pulse Resp BP Pulse Ox
38.8 C H 129 20 123/81 97
07/30/24 18:20 07/30/24 18:20 07/30/24 18:20 07/30/24 18:20 07/30/24 18:20
Last Documented Vital Signs
Temp Pulse Resp BP Pulse Ox
38.8 C H 113 20 115/78 97
07/30/24 19:39 07/30/24 19:39 07/30/24 19:39 07/30/24 20:00 07/30/24 20:16
*Pulse Oximetry
SaO2: 97
Oxygen Mode of Delivery: Room air
*Critical Care Note
Total Time (30-74mins, 75-104mins- exclusive of procedures): Not Applicable
ED Attending Note
-
Portions of this chart may have been created with voice recognition software.� Occasional wrong word or��sound alike� substitutions may have occurred due to the inherent limitations of voice recognition software.
Discharge Plan
Departure
Patient Disposition: Admit
Date of Disposition: 07/30/24
Time of Disposition: 22:47
Presentation/result/management discussed w/ accepting MD/DO: dr barrios
Discharge Problem:
Endometritis
Prescriptions:
No Action
prenat.vits,sabi,mex-lsqy-haitu Tablet
1 tab PO DAILY
ibuprofen 600 mg Tablet
600 mg PO Q6HPRN PRN (Reason: cramps) Qty: 90 0RF
Referrals:
Sandra Cabral MD [Family Provider, Family Practice]
Interventions
Interventions:
*Risk Screen - Suicide Last Done: 07/30/24 19:15
*General Assessment Last Done: 07/30/24 19:15
*Neglect/Abuse Screening Last Done: 07/30/24 19:15
*ED- Fall Risk Assessment Last Done: 07/30/24 19:15
*ED COVID-19 Vaccine History Last Done: 07/30/24 19:15
ED- Neurological Assessment Last Done: 07/30/24 19:42
ED-Skin Assessment Last Done: 07/30/24 19:42
Discharge Date and Time
Print Language: Belgian
[2024-07-30 19:39] VITALS: BP 116/70
[2024-07-30 19:43] LABS: % Basophils 0.2 % (0-2); % Eosinophils 0.2 % (0-6); % Immature Granulocytes 1.7 % (0-0.5); % Lymphocytes 8.7 % (20.5-51.1); % Monocytes 5.9 % (1.7-9.3); % Neutrophils 83.3 % (42.2-75.2); Absolute Immature Granulocytes 0.3 10^3/uL (0-0.05); Absolute Lymphocytes 1.4 10^3/uL (1.2-3.4); Absolute Monocytes 0.9 10^3/uL (0.1-0.6); Absolute Neutrophils 13.4 10^3/uL (1.4-6.5); Hematocrit 28.6 % (37.0-47.0); Hemoglobin 9.8 g/dL (12.0-16.0); Mean Corp Hgb Conc. 34.3 g/dL (33.0-37.0); Mean Corpuscular Hgb 30.8 pg (27.0-31.0); Mean Corpuscular Volume 89.9 fL (81.0-99.0); Mean Platelet Volume 8.9 fL (7.4-10.4); Nucleated Red Blood Cells % 0.1 %; Platelet Count 451 10^3/uL (130-400); Red Blood Cell Count 3.18 10^6/uL (4.20-5.40); Red Cell Dist. Width 13.7 % (11.5-14.5)
[2024-07-30 20:00] VITALS: BP 115/78
[2024-07-30 20:07] LABS: Lactic Acid 0.7 mmol/L (0.7-2.0)
[2024-07-30 20:09] LABS: ALT (SGPT) 55 U/L (0-35); AST (SGOT) 52 U/L (14-36); Alkaline Phosphatase 233 U/L (38-126); Blood Urea Nitrogen 11 mg/dl (7-17); Calcium 8.2 mg/dl (8.4-10.2); Carbon Dioxide 19 mmol/L (22-30); Chloride 114 mmol/L (98-107); Glucose 76 mg/dl (70-99); Potassium 3.5 mmol/L (3.5-5.1); Sodium 139 mmol/L (135-145); Total Bilirubin 0.5 mg/dl (0.2-1.3); Total Protein 5.7 g/dl (6.3-8.2); eGFR > 60.00
[2024-07-30 22:44] VITALS: BMI 24.2
[2024-07-30 22:48] LABS: Urine Albumin Negative (Neg - Trace); Urine Bilirubin Negative (Negative); Urine Character Clear (Clear); Urine Color Yellow; Urine Glucose Negative (Negative); Urine Ketone 3+ (Negative); Urine Leukocyte 1+ (Negative); Urine Nitrite Negative (Negative); Urine Occult Blood 4+ (Negative); Urine Urobilinogen Negative (Neg - 1+)
[2024-07-30 22:58] LABS: Urine Bacteria Few (Negative)
[2024-07-30] MEDS: GENTAMICIN 58.5 MG IV (23:28)
--- NOTE | 2024-07-30 23:41 | HPS.HSE ---
Family Physician
-
Family Physician: Sandra Cabral MD
Chief Complaint
-
fever, abdominal pain
History of Present Illness
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
HPI: Patient is a 19yo s/p PLTCS on 07/25 for non-reassuring heart tones. She reports that this afternoon she had a fever of 104 at home. She took Tylenol and called the answering service. I requested that she come to the ED for
evaluation. In the ED, patient was found to have a temp of 102 and was tachycardic to 129. She reports feeling cold and having lower abdominal pain at the incision site. She has also been overall tired since delivery. She denies dysuria, chest pain,
or shortness of breath. She has had a sore throat- she was under general anesthesia for her . She denies foul smelling discharge or heavy vaginal bleeding. She denies breast engorgement or signs of mastitis. She is without
difficulty. She reports she is feeling better now than when she first presented to the ED.
PMHx: denies
Meds: PNV
Surghx: C/Sx1
NKDA
Socialhx: denies tobacco, etoh or illicit drug use
Famhx: denies
OBHx: PLTCS 07/25/24
CTAP:
Lower Chest: Small right and trace left pleural effusions with adjacent atelectasis.
Abdomen:
Liver: Within normal limits.
Bile Ducts: Within normal limits.
Gallbladder: Pericholecystic fluid. Nondistended.
Pancreas: Within normal limits.
Spleen: Within normal limits.
Adrenals: No discrete nodule.
Kidneys/Ureters: No hydronephrosis. No suspicious renal lesions.
Bowel: No obstruction or wall thickening. Mild colonic stool burden.
Peritoneum: Trace free fluid in the pelvis.
Reproductive Organs: The uterus is enlarged. There is heterogeneous fluid within the endometrial canal as well as trace gas within the lower uterine canal.
Bladder: Within normal limits.
Vessels: Within normal limits.
Retroperitoneum: Within normal limits.
Abdominal Wall: Postoperative changes in the lower anterior abdominal wall. There is trace subcutaneous gas which likely postoperative in nature.
Bones: No suspicious lesions.
IMPRESSION:
There is heterogeneous fluid, possibly blood products, as well as small volume gas within the endometrial canal which may be sequelae of recent prior section, however infection/endometritis cannot be excluded.
Small right and trace left pleural effusion with adjacent atelectasis.
There is small volume pericholecystic free fluid which can be seen with cholecystitis. Consider correlation with lab values and possible right upper quadrant ultrasound for further evaluation.
Medical History
Past Medical History
Past Medical History: Reports None
Past Surgical History: Reports
Social History
Tobacco: Non-smoker
Alcohol: None
Drug: None
Family History
Family History: Not pertinent
Allergies / Home Medications
Allergies reflects when Allergies were last updated in [email or web address].
Home Medications with original date entered in [email or web address]
Allergy/Medication List:
NKDA
Meds: PNV
Review of Systems
-
A 12 point ROS was completed and negative except as noted: Yes
Physical Exam
Vital Signs
Vital Signs
Temp Pulse Resp BP Pulse Ox
101.8 F H 113 20 115/78 97
07/30/24 19:39 07/30/24 19:39 07/30/24 19:39 07/30/24 20:00 07/30/24 20:16
Physical Exam
General: Well Developed
HEENT: NormoCephalic
Respiratory: Non Labored Respirations
Cardiac: Tachycardia
GI: Soft, Non Distended and Other (patient w/ voluntary guarding- said it does not hurt but is nervous about pain, not able to check for fundal tenderness due to voluntary guarding, incision c/d/i)
Skin: Warm and Dry
Neuro: Awake
Psych: Calm
Laboratory Results
-
07/30/24 19:30
07/30/24 19:30
Laboratory Results
Lactic Acid Cancelled 07/30/24 23:30
Total Bilirubin 0.5 mg/dl (0.2-1.3) 07/30/24 19:30
AST 52 U/L (14-36) H 07/30/24 19:30
ALT 55 U/L (0-35) H 07/30/24 19:30
Alkaline Phosphatase 233 U/L (38-126) H 07/30/24 19:30
Impression/Plan
-
IMPRESSION:
Patient is a 19yo s/p PLTCS on 07/25 for NRFHTs, presents with fever and concerns for endometritis
PLAN:
- Tmax 102 @1820 on 07/30; Tlast 101.8 @1940 on 07/30. White count 16.0
- CTAP reviewed. Possible endometritis vs post surgical changes present. Unable to adequately assess for fundal tenderness as patient has voluntary guarding. Incision c/d/i with no signs of infection
- Blood culture and urine culture pending. Patient has a history of multiple positive urine cultures during this with a history of ESBL Klebsiella. Most recent urine culture positive for GBS on 07/24
- Covid, flu and rapid strep negative. Throat culture pending.
- LFTs mildly elevated (AST/ALT 52/55). Could be secondary to infection. Low suspicion for PEC as patient has had no elevated BPs and no other s/sx. Repeat CBC and CMP ordered for the morning. CT with pericholecystic fluid which can be seen with
cholecystitis- pt has no RUQ pain
- Gentamicin 5mg/kg q24hr, Ampicillin 2g q6h, and Clindamycin 900mg q8h ordered for suspected endometritis
- Regular diet
- SCDs for DVT prophylaxis
- Reviewed plan of care with patient and her . Aware she will need to be admitted until she is at least 24-48hrs afebrile and clinically improving. She may need to be discharged home on antibiotics pending cultures
- continue routine PP/postop care
[2024-07-31] VITALS (7 sets, daily range): BP systolic 104–126; BP diastolic 69–80
[2024-07-31] MEDS: CLEOCIN 50 IV ×3 (00:10→15:36)
[2024-07-31] MEDS: AMPICILLIN 108 MG IV ×4 (00:41→18:03)
[2024-07-31] MEDS: TYLENOL 1000 MG PO (01:38)
[2024-07-31] MEDS: MOTRIN 600 MG PO ×3 (01:39→18:48)
--- NOTE | 2024-07-31 02:06 | TRANSFER ---
Addendum entered by Saray Solorzano RN 07/31/24 06:17:
Fundus firm at 2 below umbilicus. Lochia small. Voiding adequately.
Original Note:
Patient received from ED on stretcher. Transferred independently to bed. Patient AA&O x3. Language barrier present. Patient speaks Kiswahili. [employer]/ Partner present with patient. Language line available and utilized. Head to toe assessment
complete and as document. No acute distress. Patient medicated for pain and low grade fever. Plan of care continues as indicated.
[2024-07-31 09:05] LABS: Hematocrit 29.1 % (37.0-47.0); Hemoglobin 9.8 g/dL (12.0-16.0); Mean Corp Hgb Conc. 33.7 g/dL (33.0-37.0); Mean Corpuscular Hgb 30.5 pg (27.0-31.0); Mean Corpuscular Volume 90.7 fL (81.0-99.0); Mean Platelet Volume 8.9 fL (7.4-10.4); Platelet Count 423 10^3/uL (130-400); Red Blood Cell Count 3.21 10^6/uL (4.20-5.40); Red Cell Dist. Width 13.7 % (11.5-14.5); White Blood Cell Count 19.2 10^3/uL (4.8-10.8)
--- NOTE | 2024-07-31 09:27 | PTCARENOTE ---
Pt Vss, no temp, pt resting comfortably. Lungs CTA, HRR, Abdomen soft and pt pumping at present. Pt OOB to bathroom independently complaining of no pain. Meds administered as ordered, lab work obtained awaiting full results. Pt with good
appetite, drinking WNL. Will continue to monitor patient. Iv site to RIGHT ANTICUB, no soreness at sit, no infiltration and flushes Wnl.
[2024-07-31 09:49] LABS: ALT (SGPT) 48 U/L (0-35); AST (SGOT) 36 U/L (14-36); Albumin 2.7 g/dl (3.5-5.0); Alkaline Phosphatase 207 U/L (38-126); Blood Urea Nitrogen 13 mg/dl (7-17); Calcium 8.1 mg/dl (8.4-10.2); Carbon Dioxide 18 mmol/L (22-30); Chloride 112 mmol/L (98-107); Estimated Creatinine Clearance > 125 ml/min; Glucose 47 mg/dl (70-99); Potassium 3.6 mmol/L (3.5-5.1); Sodium 140 mmol/L (135-145); Total Bilirubin 0.7 mg/dl (0.2-1.3); Total Protein 5.3 g/dl (6.3-8.2); eGFR > 60.00
--- NOTE | 2024-07-31 10:00 | PTCARENOTE ---
Glucose 47 called from Lab, pt provided apple juice and is awake and alert at present, showing no signs of hypoglycemia.
--- NOTE | 2024-07-31 10:58 | LACTATION ---
Ciara is pumping breastmilk. she is getting less milk from her left breast. she has an area at 12:00 on the left breast that she says is very painful to the touch. it appears slightly pink. provided ice packs.
[2024-07-31] MEDS: PRENATAL PLUS PO (11:28)
--- NOTE | 2024-07-31 13:29 | PTCARENOTE ---
Blood culture report + gram Cocci noted in culture, results given to Caitlin Cat MD @ 1300. in room prior to this timeframe of 1300.
--- NOTE | 2024-07-31 20:47 | CON.ID ---
Consultation
-
Date/Time Consultation Requested: July
Date/Time Consultation Performed: July
Requesting Provider: Dr Barrios
Performing Provider: Alysa Coleman MD
Reason for Consultation: Endometritis
Chief Complaint / Past History
Chief Complaint
Abdominal pain status post
History of Present Illness
The patient was admitted by way of the emergency room with a temperature of 104 at home with evaluation in the ED showing fever 102 with HR 129, chills, lower abdominal pain at incision site
Past History
Past Medical History: None
Past Surgical History: None and (07/24/24)
Allergy History:
No Known Allergies Allergy (Verified 07/30/24 18:25)
Medications Reviewed: Yes
Current Antibiotics:
Clindamycin, gentamicin, ampicillin
Social History
Tobacco: Non-Smoker
Alcohol: None
Drug: None
Personal:
Living: With Family
Employment: Not Employed
Family History
Family History: Not Pertinent
Review of Systems
Review of Systems
General: Fever, Chills, Change in Appetite and Other (malaise)
Respiratory: Cough (sore throat since with general anesthesia)
All systems: All other systems were reviewed and were negative
Vital Signs
Temp Pulse Resp BP Pulse Ox
98.5 F 81 16 118/75 99
07/31/24 13:20 07/31/24 09:17 07/31/24 13:20 07/31/24 13:20 07/31/24 06:19
Physical Exam
Physical Exam
Constitutional: No Acute Distress, Well Developed, Comfortable and Non-toxic (appears comfortable and relaxed)
Head: Normocephalic
Eyes: Pupils Equal, Pupils Round, No Conjunctival Hemorrhage and Sclera Anicteric
Pharynx: Benign
Oral: No Thrush and No Ulcers
Cardiovascular: Regular Rate
Pulmonary: Clear
Gastrointestinal: Tender, Non Distended, Decreased Bowel Sounds, No Rebound and No Guarding (patient says that pain is deep inside and burning in nature)
Genito-Urinary: Suprapubic Tenderness
Skin: Warm and Dry (clear)
Wound: Other (CS wound clean and dry)
Neurological: Awake, Alert, Oriented and No Motor Deficits (cooperative with good eye contact)
Psychological: Calm (cooperative , pleasant,good eye contact)
Lab / Diagnostic Study Results
07/31/24 08:38
07/31/24 08:38
Abs Immat Gran (auto) 0.3 10^3/uL (0-0.05) H 07/30/24 19:30
Absolute Neuts (auto) 13.4 10^3/uL (1.4-6.5) H 07/30/24 19:30
Absolute Lymphs (auto) 1.4 10^3/uL (1.2-3.4) 07/30/24 19:30
Absolute Monos (auto) 0.9 10^3/uL (0.1-0.6) H 07/30/24 19:30
Absolute Basos (auto) 0.0 10^3/uL (0-0.2) 07/30/24 19:30
Immature Gran % 1.7 % (0-0.5) H 07/30/24:30
Neutrophils % 83.3 % (42.2-75.2) H 07/30/24 19:30
Lymphocytes % 8.7 % (20.5-51.1) L 07/30/24:30
Monocytes % 5.9 % (1.7-9.3) 07/30/24 19:30
Eosinophils % 0.2 % (0-6) 07/30/24:30
Basophils % 0.2 % (0-2) 07/30/24:30
Lactic Acid Cancelled 07/30/24 23:30
Ur Squamous Epith Cells 6-10 /LPF (Few) 07/30/24 22:42
Microbiology Results
Micro:
07/30/24 19:30 Blood Culture - Preliminary
Blood/Venous No Growth in 24 hours- Final report to follow
07/30/24 22:50 Blood Culture - Preliminary
Blood/Venous Streptococcus agalactiae
Gram Stain - Preliminary
07/30/24 19:12 Streptococcus Screen (ALAINA) - Preliminary
Throat/Pharynx Culture in Progress
Streptococcus Rapid Screen - Final
Rapid Strep Screen (Group A) Negative
07/30/24 19:12 Throat Culture - Preliminary
Throat/Pharynx Usual Respiratory Sydnee
07/30/24 22:42 Urine Culture - Pending
Urine
07/30/24 18:29 Influenza Types A & B (MEHDI) - Final
Nasal Swab Negative for Influenza A & B, NAAT
Negative results must be combined with clinical observations
and patient history.
Nucleic Acid Amplification test (NAAT)performed on the
[employer] platform.
Assessment / Plan
1. Endometriosis likely, WBC 19.2,PMN 83.3%, now afebrile T 98.1
2. Bacteremia S.agalactiae preliminary
3. Other cultures urine S.agalactiae, throat Strep positive
4. CT abd/pelvis possible endometritis,cholecystitis, trace pleural effusion
5. Continue current broad spectrum antibiotic pending final culture results
Targeted antibiotic to be provided at that time
Thank you for calling Infectious Disease consultation.
The ID team will continue to follow with you.
Care Review
Plan reviewed with: Other ()
Total Time Spent with Patient (in minutes): 55
[2024-07-31] MEDS: GENTAMICIN 58.5 MG IV (21:59)
--- NOTE | 2024-07-31 23:43 | W.PN.OBG.DWH ---
Today's Communication / Plan
-
I.D consulted given prelim Blood cx showing GBS
for now continue current Abx regimen Gent/Clinda/Amp
Assessment/Plan
-
19yo POD#7, HD#2 with suspected endometritis.
1. Endometritis
-Blood cx prelim showing GBS. Same as bacteria that was in her Urine on 07/24. ID consult placed to assist with future mgmt recommendations
-Repeat UCx pending
-Persistent leukocytosis, continue to trend CBC
- Last fever at 1AM. continue to monitor temp curve
-continue with current antibiotic therapy. Amp/Gent/Clinda
2. Post-
-continue pain control prn
-anemia noted- feosol ordered.
-regular diet
-LFTs trending down. no concern for PEC.
Subjective Data
-
Late Entry- patient seen earlier today
Patient feels okay, having burning at the incision. No heavy vaginal bleeding. tolerating a regular diet. /pumping No fevers yet today.
Objective Data
-
Laboratory Results
07/31/24 08:38
07/31/24 08:38
Vital Signs
Temp Pulse Resp BP Pulse Ox
98.1 F 88 18 104/72 99
07/31/24 20:00 07/31/24 20:00 07/31/24 20:00 07/31/24 20:00 07/31/24 06:19
Tmax 102 @ 1820 (07/30)
Last fever 100.6 @ 0117 (07/31)
Blood Cx: Prelim- S. agalactiae
Ucx 07/24: GBS
Ucx 07/30: pending
Throat Cx: neg
Gen: nad sitting up in bed
Abd: patient hitting hand away and turning in bed so not able to perform a proper abdominal exam or assess her fundus.
Incision: c/d/i
[2024-08-01] VITALS: BP 120/79
[2024-08-01] MEDS: AMPICILLIN 108 MG IV ×3 (00:18→12:48)
[2024-08-01] MEDS: CLEOCIN 50 IV ×2 (01:08→08:22)
[2024-08-01] MEDS: MOTRIN 600 MG PO ×3 (01:14→21:59)
[2024-08-01 04:00] VITALS: BP 108/69
[2024-08-01 04:54] LABS: % Basophils 0.2 % (0-2); % Immature Granulocytes 1.5 % (0-0.5); % Lymphocytes 18.2 % (20.5-51.1); % Monocytes 4.9 % (1.7-9.3); % Neutrophils 73.2 % (42.2-75.2); Absolute Eosinophils 0.3 10^3/uL (0-0.7); Absolute Immature Granulocytes 0.2 10^3/uL (0-0.05); Absolute Lymphocytes 2.3 10^3/uL (1.2-3.4); Absolute Monocytes 0.6 10^3/uL (0.1-0.6); Absolute Neutrophils 9.4 10^3/uL (1.4-6.5); Hematocrit 27.5 % (37.0-47.0); Hemoglobin 9.4 g/dL (12.0-16.0); Mean Corp Hgb Conc. 34.2 g/dL (33.0-37.0); Mean Corpuscular Hgb 30.4 pg (27.0-31.0); Mean Platelet Volume 8.9 fL (7.4-10.4); Nucleated Red Blood Cells % 0 %; Platelet Count 447 10^3/uL (130-400); Red Blood Cell Count 3.09 10^6/uL (4.20-5.40); Red Cell Dist. Width 13.9 % (11.5-14.5); White Blood Cell Count 12.8 10^3/uL (4.8-10.8)
[2024-08-01 08:00] VITALS: BP 116/78
[2024-08-01] MEDS: PRENATAL PLUS 1 TABLET PO (08:22)
[2024-08-01] MEDS: FEOSOL 325 MG PO (08:22)
--- NOTE | 2024-08-01 15:10 | W.PN.OBG.DWH ---
Today's Communication / Plan
-
picc line for home iv rx
VN consult
Assessment/Plan
-
POD#7 primary cs for Non reass testing, mat temp, GBS bl cx x 1
abx as per ID
repeat bl cx
NORM
Subjective Data
-
no complaints. denies foul smelling discharge, no issues with voiding, bm, no fever since 07/31 1 am
Objective Data
-
Laboratory Results
08/01/24 04:19
07/31/24 08:38
Vital Signs
Temp Pulse Resp BP Pulse Ox
98.0 F 85 16 116/78 99
08/01/24 08:00 08/01/24 08:00 08/01/24 08:00 08/01/24 08:00 07/31/24 06:19
lungs cl
cor rrr
abd +bs soft, fundus firm nt
incis c/d/i
ext nt
--- NOTE | 2024-08-01 16:27 | CM ---
Addendum entered by Anya Gore 08/02/24 09:07:
Patients , Gustavo Garzon, confirmed he will be point of contact ([phone]).
Original Note:
CM reviewed chart, reviewed with nursing, patient seen bedside with . Patient will require IV antibiotics upon discharge, line to be placed. Clinicals faxed to Ana Laura at [facility], will follow up with [facility] tomorrow regarding script,
benefits, bedside teaching.
Plan; home with IV antibiotics
[2024-08-01 16:45] VITALS: BP 110/71
--- NOTE | 2024-08-01 17:18 | W.PN.ID1 ---
Date of Service
Date of Service: August 01, 2024
Today's Communication
Patient was discussed with attending building rental superintendent and plan to discontinue current antibiotics to be replaced with ceftriaxone 2 g every 24 hours patient will be receiving a duration of 10 days of treatment providing TTE shows no evidence of
endocarditis and repeat blood cultures drawn today show no growth to date at 48 hours
Assessment / Plan
1. Endometriosis likely, WBC 12.8 , now afebrile T 98.1
2. Bacteremia S.agalactiae 07/30/24 With repeat blood cultures drawn for test of cure
TTE ordered to assess for endocarditis as this organism can be associated with endocarditis
3. Other cultures urine S.agalactiae, throat Strep positive previously
4. CT abd/pelvis possible endometritis,cholecystitis, trace pleural effusion
5. Discontinue current broad spectrum antibiotic With initiation of ceftriaxone with duration to be determined
If TTE without endocarditis course of treatment will be 10 days after date of first negative blood culture
PICC line may be inserted when blood cultures are negative at 48 H
6. Likely discharge day August 03 PM
The ID team will continue to follow with you.
Chief Complaint
-: Bacteremia (The patient is bacteremic with Streptococcus group B)
Subjective / Review of Systems
Review of Systems: No Fever, No Chills, No Headache, No Pharyngitis, No Stiff Neck, No Swollen Lymph Nodes, No Cough, No Sputum Production, No Chest Pain, No Palpitations, No Abdominal Pain, No Nausea, No Vomiting, No Diarrhea, No Dysuria, No Joint
Pain and No Skin Rash (The patient has greatly improved in the last 24 hours and is feeling much better)
Vital Signs / Physical Exam
Vital Signs
Vital Signs
Temp Pulse Resp BP Pulse Ox
98.0 F 85 16 116/78 99
08/01/24 08:00 08/01/24 08:00 08/01/24 08:00 08/01/24 08:00 07/31/24 06:19
Physical Exam
Constitutional: No Acute Distress, Well Developed, Comfortable and Non-toxic
Head: Normocephalic
Eyes: Pupils Equal, Pupils Round, No Conjunctival Hemorrhage and Sclera Anicteric
Oropharyngeal: Benign
Cardiovascular: Regular Rate
Pulmonary: Clear
Gastrointestinal: Tender, Non Distended, No Rebound and No Guarding
Genito-Urinary: Suprapubic Tenderness (Minimal suprapubic tenderness at site of incision)
Skin: Warm and Dry ( incision clean and dry)
Neurological: Awake, Alert, Oriented and AO x 3
Psychological: Calm (Mood improved with patient comfortable, relaxed, smiling and interactive)
Lines: PIV
Objective Data
Lab Data
Lab Results
08/01/24 04:19
07/31/24 08:38
Estimated Creat Clear > 125 ml/min 07/31/24 08:38
Lactic Acid Cancelled 07/30/24 23:30
Total Bilirubin 0.7 mg/dl (0.2-1.3) 07/31/24 08:38
AST 36 U/L (14-36) 07/31/24 08:38
ALT 48 U/L (0-35) H 07/31/24 08:38
Alkaline Phosphatase 207 U/L (38-126) H 07/31/24 08:38
Most recent labs reviewed.
Microbiology: Report Reviewed (Blood cultures from 07/30/2024 with growth of Streptococcus group B)
Micro Results:
08/01/24 14:28 Blood Culture - Pending
Blood/Venous
08/01/24 13:56 Blood Culture - Pending
Blood/Venous
07/30/24 19:12 Streptococcus Screen (ALAINA) - Final
Throat/Pharynx No Beta Hemolytic Streptococci Isolated
Streptococcus Rapid Screen - Final
Rapid Strep Screen (Group A) Negative
07/30/24 19:12 Throat Culture - Final
Throat/Pharynx Usual Respiratory Sydnee
07/30/24 22:42 Urine Culture - Final
Urine
07/30/24 22:50 Blood Culture - Preliminary
Blood/Venous Streptococcus agalactiae
Gram Stain - Preliminary
07/30/24 19:30 Blood Culture - Preliminary
Blood/Venous No Growth in 24 hours- Final report to follow
07/30/24 18:29 Influenza Types A & B (MEHDI) - Final
Nasal Swab Negative for Influenza A & B, NAAT
Negative results must be combined with clinical observations
and patient history.
Nucleic Acid Amplification test (NAAT)performed on the
[employer] platform.
CT Scan: Report Reviewed (CT abdomen and pelvis with possible endometritis, cholecystitis, and trace pleural effusion)
Care Review
Plan reviewed with: Nurse (Treatment plan was discussed with attending building rental superintendent, , nurse, ), Physician and Other Provider
Total Time Spent with Patient (in minutes): 40
[2024-08-01] MEDS: CLEOCIN IV (17:46)
[2024-08-01] MEDS: STERILE WATER FOR INJECTION 20 ML IV (18:40)
[2024-08-01] MEDS: ROCEPHIN 2000 MG IV (18:52)
[2024-08-01 20:00] VITALS: BP 109/70
[2024-08-02] VITALS: BP 99/70
[2024-08-02 04:10] VITALS: BP 108/71
[2024-08-02] MEDS: MOTRIN 600 MG PO ×2 (04:57→10:18)
[2024-08-02 08:44] VITALS: BP 111/72
[2024-08-02] MEDS: FEOSOL 325 MG PO (08:53)
[2024-08-02] MEDS: SENOKOT-S 1 TABLET PO (08:53)
[2024-08-02] MEDS: PRENATAL PLUS 1 TABLET PO (08:53)
--- NOTE | 2024-08-02 10:28 | CM ---
Addendum entered by Anya Gore 08/02/24 15:11:
Script received by ID, faxed to [facility]. Celia met with mother/ to complete bedside teach, will plan to deliver to mothers home tomorrow with nursing visit from [facility]. CM will continue to follow for all discharge planning needs.
Original Note:
CM reviewed chart, reviewed with Nurse. Patient in shower, met with patients , discussed Celia from [facility] coming to do bedside teach today between -, cost for patient per week $1.00, aware, will have nurse visit scheduled
for Wednesday, day of discharge. Line information and updated clinicals faxed to Celia. CM will continue to follow for all discharge planning needs.
Plan; home likely tomorrow with [facility] IV antibiotics
[facility] [place] Fax:
[2024-08-02 16:15] VITALS: BP 110/60
--- NOTE | 2024-08-02 17:45 | W.PN.OBG.DWH ---
Today's Communication / Plan
-
- continue antibiotics
- repeat blood cultures pending
- Likely D/C 08/03 per ID
Assessment/Plan
-
19yo POD#9 s/p PLTCS for NRFHTs with suspected endometritis
Endometritis
- prelim blood cultures with GBS. ID consult appreciated. Repeat blood cultures pending. Echo negative
- Last fever 100.6-07/31 at 0100
- Leukocytosis downtrending
- continue with Ceftriaxone
- continue routine PP care
- continue iron supplementation for anemia
- regular diet
- LFTs downtrended. No concern for PEC
Subjective Data
-
No complaints. Reports she is feeling much better. No heavy lochia. Tolerating a regular diet.
Objective Data
-
Laboratory Results
08/01/24 04:19
07/31/24 08:38
Vital Signs
Temp Pulse Resp BP Pulse Ox
98.2 F 66 14 111/72 99
08/02/24 14:16 08/02/24 08:44 08/02/24 08:44 08/02/24 08:44 07/31/24 06:19
[2024-08-02] MEDS: ROCEPHIN 2000 MG IV (17:49)
[2024-08-02 20:45] VITALS: BP 133/87
--- NOTE | 2024-08-02 21:06 | W.PN.ID1 ---
Date of Service
Date of Service: August 02, 2024
Today's Communication
continue Ceftriaxone
Orders provided to rehabilitation caseworker for probable D/C tomorrow PM
Assessment / Plan
1. Endometriosis likely, WBC 12.8 , now afebrile T 98.1
2. Bacteremia S.agalactiae 07/30/24 With repeat blood cultures drawn for test of cure redrawn 08/01/24 with NGTD
TTE ordered to assess for endocarditis as this organism can be associated with endocarditis
3. Other cultures urine S.agalactiae, throat Strep positive previously
4. CT abd/pelvis possible endometritis,cholecystitis, trace pleural effusion
5. Discontinue current broad spectrum antibiotic With initiation of ceftriaxone with last dose 08/12/24
If TTE without endocarditis course of treatment will be 10 days after date of first negative blood culture
Mid line may be inserted when blood cultures are negative at 48 H
6. Likely discharge day August 03
Chief Complaint
-: Bacteremia (The patient is bacteremic with Streptococcus group B)
Subjective / Review of Systems
Review of Systems: No Fever, No Chills, No Headache, No Pharyngitis, No Stiff Neck, No Swollen Lymph Nodes, No Cough, No Sputum Production, No Chest Pain, No Palpitations, No Abdominal Pain, No Nausea, No Vomiting, No Diarrhea, No Dysuria, No Joint
Pain and No Skin Rash (out of bed today and eating with improved condition)
Vital Signs / Physical Exam
Vital Signs
Vital Signs
Temp Pulse Resp BP Pulse Ox
99.3 F 68 14 110/60 99
08/02/24 16:15 08/02/24 16:15 08/02/24 16:15 08/02/24 16:15 07/31/24 06:19
Physical Exam
Constitutional: No Acute Distress, Well Developed, Comfortable and Non-toxic
Head: Normocephalic
Eyes: Pupils Equal, Pupils Round, No Conjunctival Hemorrhage and Sclera Anicteric
Oropharyngeal: Benign
Cardiovascular: Regular Rate
Pulmonary: Clear and Non Labored
Gastrointestinal: Soft, Non Tender, Non Distended, Decreased Bowel Sounds, No Rebound and No Guarding
Extremities: Other (good ROM out of bed in chair)
Skin: Warm and Dry
Wound: Other (improved CS incision)
Neurological: Awake, Alert, Oriented, Normal Gait and No Motor Deficits
Psychological: Calm
Lines: PIV
Objective Data
Lab Data
Lab Results
08/01/24 04:19
07/31/24 08:38
Estimated Creat Clear > 125 ml/min 07/31/24 08:38
Lactic Acid Cancelled 07/30/24 23:30
Total Bilirubin 0.7 mg/dl (0.2-1.3) 07/31/24 08:38
AST 36 U/L (14-36) 07/31/24 08:38
ALT 48 U/L (0-35) H 07/31/24 08:38
Alkaline Phosphatase 207 U/L (38-126) H 07/31/24 08:38
Most recent labs reviewed.
Microbiology: Report Reviewed
Micro Results:
07/30/24 19:30 Blood Culture - Preliminary
Blood/Venous No Growth in 72 hours- Final report to follow
08/01/24 14:28 Blood Culture - Preliminary
Blood/Venous No Growth in 24 hours- Final report to follow
08/01/24 13:56 Blood Culture - Preliminary
Blood/Venous No Growth in 24 hours- Final report to follow
07/30/24 19:12 Streptococcus Screen (ALAINA) - Final
Throat/Pharynx No Beta Hemolytic Streptococci Isolated
Streptococcus Rapid Screen - Final
Rapid Strep Screen (Group A) Negative
07/30/24 19:12 Throat Culture - Final
Throat/Pharynx Usual Respiratory Sydnee
07/30/24 22:42 Urine Culture - Final
Urine
07/30/24 22:50 Blood Culture - Preliminary
Blood/Venous Streptococcus agalactiae
Gram Stain - Preliminary
07/30/24 18:29 Influenza Types A & B (MEHDI) - Final
Nasal Swab Negative for Influenza A & B, NAAT
Negative results must be combined with clinical observations
and patient history.
Nucleic Acid Amplification test (NAAT)performed on the
[employer] platform.
CT Scan: Report Reviewed (possible endometritis)
Care Review
Plan reviewed with: Nurse and Physician (rehabilitation caseworker)
Total Time Spent with Patient (in minutes): 35
[2024-08-03 00:20] VITALS: BP 132/81
[2024-08-03 04:44] VITALS: BP 115/72
[2024-08-03 08:00] VITALS: BP 104/67
[2024-08-03] MEDS: PRENATAL PLUS 1 TABLET PO (09:08)
[2024-08-03] MEDS: SENOKOT-S 1 TABLET PO (09:08)
[2024-08-03] MEDS: FEOSOL 325 MG PO (09:09)
--- NOTE | 2024-08-03 10:05 | PTCARENOTE ---
antiembolism therapy not ordered
[2024-08-03 12:00] VITALS: BP 130/80
--- NOTE | 2024-08-03 16:13 | W.PN.OBG.DWH ---
Today's Communication / Plan
-
dc home
Assessment/Plan
-
endometritis.
Bacteremia- on Rocephin daily. Stable for dc home on Rocephin 2000mg IV Q 24 hrs x 10 days as per ID.
Cultures negative x 48 hrs.
Anemia- continuing on iron
Reviewed dc instructions.
Home infusion company arrangements made.
Per , [facility] company will pull her IV line after last infusion.
Pt to come for postop check in office- as appt scheduled.
Advised to call if any fever, chills, abdominal pain.
Subjective Data
-
Feeling well.
Denies dizziness, lightheadedness, fever, chills. No abdominal pain.
No concerns.
Objective Data
-
Laboratory Results
08/01/24 04:19
07/31/24 08:38
Vital Signs
Temp Pulse Resp BP Pulse Ox
98.3 F 73 16 130/80 99
08/03/24 12:00 08/03/24 12:00 08/03/24 12:00 08/03/24 12:00 07/31/24 06:19
VSS afeb
cor: regular rate
Pulm: clear
Abd: soft NDNT fundus firm [employer] cdi
Ext: no calf pain
Blood cultures negative x 48hrs
wbc downtrending.
hgb 9.4 stable
--- NOTE | 2024-08-03 16:19 | W.DS.TRANS ---
DC Summary - Post Graduate Internship
-
Discharge Instructions:
Discharge Diagnosis/Procedures endometritis, Strep agalactiae
bacteremia,postop csection from 07/24
Diet Regular
Activity No strenuous activity
Driving Restrictions As prior to admission
Bathing Restrictions OK to Shower
Instructions:
Stand-Alone Forms:
Changes to Home Medications: No
Discharge Medications:
DC Medications w/original date entered in [facility]
prenat.vits,sabi,ivx-auij-lcgcb 1 tab PO DAILY 07/24/24
ibuprofen 600 mg tablet 600 mg PO Q6HPRN PRN cramps #90 tabs 07/27/24
acetaminophen 500 mg tablet (Tylenol Extra Strength) 1,000 mg (2 x 500 mg) PO Q6HPRN PRN mild pain, fever #0 tabs 08/02/24
ceftriaxone 2 gram solution for injection 2,000 mg IV Q24H Infection #10 ea 08/02/24
ferrous sulfate 325 mg (65 mg iron) tablet (FeroSul) 325 mg PO DAILY #0 tabs 08/02/24
Home Medication Changes
Pending Results: No
Total time spent discharging patient (in min): 25
[2024-08-03] MEDS: ROCEPHIN 2000 MG IV (16:21)
[2024-08-03] MEDS: STERILE WATER FOR INJECTION 20 ML IV (16:21)
[2024-08-03] MEDS: MOTRIN 600 MG PO (16:41)
--- NOTE | 2024-08-03 16:52 | PTCARENOTE ---
Discharged to home with sister in law. 1800 dose of IV Rocephin given now per Dr. Allen. Discharge instructions given to spanish speaking . Has good understanding that IV antibiotics will continue at home for the next 10 days and that
visiting nurse will be out to administer.
[2024-08-03 16:57] VITALS: BP 118/71
--- NOTE | 2024-08-03 19:59 | W.PN.ID1 ---
Date of Service
Date of Service: August 03, 2024
Today's Communication
improved and directed to return to ED for fever , pain , bleeding
Assessment / Plan
1. Endometriosis likely, WBC 12.8 , now afebrile T 98.1
2. Bacteremia S.agalactiae 07/30/24 With repeat blood cultures drawn for test of cure redrawn 08/01/24 with NGTD
TTE ordered to assess for endocarditis as this organism can be associated with endocarditis with no endocarditis
3. Other cultures urine S.agalactiae, throat Strep positive previously
4. CT abd/pelvis possible endometritis,cholecystitis, trace pleural effusion
5. Discontinue current broad spectrum antibiotic With initiation of ceftriaxone with last dose 08/12/24
If TTE without endocarditis course of treatment will be 10 days after date of first negative blood culture
Mid line may be inserted when blood cultures are negative at 48 H
6. Discharge today August 03 PM
Chief Complaint
-: Bacteremia (The patient is bacteremic with Streptococcus group B)
Subjective / Review of Systems
Review of Systems: No Fever, No Chills, No Headache, No Pharyngitis, No Stiff Neck, No Swollen Lymph Nodes, No Cough, No Sputum Production, No Chest Pain, No Palpitations, No Abdominal Pain, No Nausea, No Vomiting, No Diarrhea, No Dysuria, No Joint
Pain and No Skin Rash (improved and sitting up in bed smiling)
Vital Signs / Physical Exam
Vital Signs
Vital Signs
Temp Pulse Resp BP Pulse Ox
97.7 F 84 16 118/71 99
08/03/24 16:57 08/03/24 16:57 08/03/24 16:57 08/03/24 16:57 07/31/24 06:19
Physical Exam
Constitutional: No Acute Distress, Well Developed, Comfortable and Non-toxic
Head: Normocephalic
Eyes: Pupils Equal, Pupils Round, No Conjunctival Hemorrhage and Sclera Anicteric
Oropharyngeal: Benign
Cardiovascular: Regular Rate
Pulmonary: Clear and Non Labored
Gastrointestinal: Non Tender and Non Distended
Genito-Urinary: Suprapubic Tenderness
Extremities: Other (Good ROM)
Skin: Warm and Dry
Wound: Other (improved)
Neurological: Awake, Alert, Oriented and No Motor Deficits
Psychological: Calm
Lines: PICC
Objective Data
Lab Data
Lab Results
08/01/24 04:19
07/31/24 08:38
Estimated Creat Clear > 125 ml/min 07/31/24 08:38
Lactic Acid Cancelled 07/30/24 23:30
Total Bilirubin 0.7 mg/dl (0.2-1.3) 07/31/24 08:38
AST 36 U/L (14-36) 07/31/24 08:38
ALT 48 U/L (0-35) H 07/31/24 08:38
Alkaline Phosphatase 207 U/L (38-126) H 07/31/24 08:38
Most recent labs reviewed.
Microbiology: Report Reviewed
Micro Results:
07/30/24 19:30 Blood Culture - Preliminary
Blood/Venous No Growth in 4 days- Final report to follow
08/01/24 14:28 Blood Culture - Preliminary
Blood/Venous No Growth in 48 hours- Final report to follow
08/01/24 13:56 Blood Culture - Preliminary
Blood/Venous No Growth in 48 hours- Final report to follow
07/30/24 19:12 Streptococcus Screen ([facility]) - Final
Throat/Pharynx No Beta Hemolytic Streptococci Isolated
Streptococcus Rapid Screen - Final
Rapid Strep Screen (Group A) Negative
07/30/24 19:12 Throat Culture - Final
Throat/Pharynx Usual Respiratory Sydnee
07/30/24 22:42 Urine Culture - Final
Urine
07/30/24 22:50 Blood Culture - Preliminary
Blood/Venous Streptococcus agalactiae
Gram Stain - Preliminary
07/30/24 18:29 Influenza Types A & B ([facility]) - Final
Nasal Swab Negative for Influenza A & B, NAAT
Negative results must be combined with clinical observations
and patient history.
Nucleic Acid Amplification test (NAAT)performed on the
[employer] platform.
Care Review
Plan reviewed with: Nurse () and Other ()
Total Time Spent with Patient (in minutes): 25
== END 2024-08-03 17:00 | disposition home or self-care (01) | DRG 776 ==
LOC: LDRP 23:28
PROVIDERS: Emergency Medicine; Obstetrics & Gynecology; ADMITTING PHYSICIAN Student in an Organized Health Care Education/Training Program; EMERGENCY PHYSICIAN Emergency Medicine; FAMILY PHYSICIAN Family Medicine; OTHER PHYSICIAN Hospitalist
DX: O86.12 Endometritis following delivery (principal); Z11.52 Encounter for screening for COVID-19
CPT/HCPCS: 74177; 80053; 81003; 81015; 83605; 85025; 85027; 87040; 87070; 87086; 87154; 87205; 87502; 87811; 87880; 93306; 96365; 96367; 96375; 99284; Q9967

== ENCOUNTER 2024-08-06 21:16 | Emergency (ER) | payer OTHER, SELFPAY ==
[2024-08-06 21:20] VITALS: BP 95/61
[2024-08-06 23:28] VITALS: BP 108/74; BMI 21.8
--- NOTE | 2024-08-07 00:59 | VATNOTE ---
Patient to ED with complaint of midline leaking and pain. Per patients patient with pain at midline site and above, pain is worse when administering the antibiotic. Patient was unable to administer full dose of antibiotic tonight due to
pain. No redness or streaking noted to insertion site or above and dressing intact. Biopatch appears to be damp and if determined to keep line in place will be changed along with the dressing. Line flushed with saline and patient in significant
pain. PCN at bedside and she will reach out after patient is examined by the ER doctor. PCN also aware that if need for a new ML it would have to be during the day that this VAT RN cannot place midlines.
[2024-08-07] MEDS: TYLENOL 650 MG PO (02:39)
[2024-08-07] MEDS: LOW STRENGTH ASPIRIN 81 MG PO (02:39)
--- NOTE | 2024-08-07 03:02 | VATNOTE ---
Paged by PCN stating that the ER doctor wants the midline removed. Midline removed per protocol and peripheral line placed per ER request.
[2024-08-07] MEDS: ROCEPHIN 2000 MG IV (03:18)
[2024-08-07 03:33] VITALS: BP 106/67
--- NOTE | 2024-08-07 07:38 | ED.GENMED ---
History of Present Illness
General
Chief Complaint: Catheter/Tube Problem
Source: patient and spouse
Exam Limitations: none
Time Seen by Provider: 08/07/24 00:40
Nursing documentation reviewed up to this point in time: agreed with
History of Present Illness
History of Present Illness:
19-year-old female with history as noted who was recently admitted with endometriosis and positive blood cultures (group B strep) with midline currently on a course of ceftriaxone x 7 more days. She presents to the ER with her for
evaluation of pain and difficulty flushing her left upper extremity midline. Starting this evening she noted some soreness around the midline and when they tried to give her her dose of ceftriaxone they were having trouble pushing it. Later noted
some leakage around the line and came to the ER for assessment. No swelling noted or redness noted. No fever. No other complaints.
Past History
Past History
ED Past Medical History: None; Negative Asthma, HTN, Hypercholesterolemia or NIDDM
ED Past Surgical History: None
Social History
Tobacco: Non-smoker
Alcohol: None
Personal:
Living: with family
Review of Systems
Review of Systems
All Other Systems: ROS reviewed and negative except as documented in HPI and ROS
Constitutional: Denies fever
Respiratory: Denies trouble breathing
Cardiac: Denies chest pain
Musculoskeletal: Reports other (Pain around midline site)
Phy Exam
Physical Exam
Physical Exam:
General: Well appearing and non-toxic
HEENT: protecting airway
Neck: appears supple
CV: No evidence of cyanosis
Resp: No accessory muscle use
Abd: Non-distended
Extremities: No deformities; she has a midline in place in the left upper extremity with no obvious edema�mild tenderness just proximal to the insertion site but no palpable cord; strong left radial pulse
Neuro: Alert
Psych: Normal affect
Skin: Intact
Scores
Heart Failure Risk
Heart Failure Risk Score: Not Applicable
Heart Score for Chest Pain Patients
STEMI patient?: Not applicable
Withdrawal Assessment of Alcohol
Withdrawal Assessment Completed?: Not applicable
Course
Orders/Labs/Results
Orders:
Orders
08/07/24 01:27
US Periph Venous UPPER Ext LT Urgent
Comment:
Reason For Exam: LUE pain s/p midline
08/07/24 01:54
Acetaminophen [Tylenol] 650 mg PO NOW STA
08/07/24 02:32
Aspirin Chewable [Low Strength Aspirin] 81 mg PO NOW STA
08/07/24 03:07
CefTRIAXone [Rocephin] 2,000 mg IV NOW STA
08/07/24 03:09
Sterile Water [Sterile Water For Injection] 20 ml .ROUTE .STK-MED
Vital Signs
Initial and Last Documented VS:
Initial Vital Signs
Temp Pulse Resp BP Pulse Ox
36.8 C 83 20 95/61 98
08/06/24 21:20 08/06/24 21:20 08/06/24 21:20 08/06/24 21:20 08/06/24 21:20
Last Documented Vital Signs
Temp Pulse Resp BP Pulse Ox
36.8 C 70 16 106/67 98
08/07/24 03:33 08/07/24 03:33 08/07/24 03:33 08/07/24 03:33 08/07/24 03:33
MDM/Problems Addressed
Differential Diagnosis Includes:
DVT, thrombophlebitis, infiltration/migration/malposition of the midline
MDM/Problems Addressed:
19-year-old female presents for evaluation of some soreness around site of a midline which she has in place for continued treatment of bacteremia. Vitals and exam as above. Sent for an ultrasound to evaluate for DVT�this showed a superficial
thrombophlebitis but no signs of DVT. Midline removed. Discussed with IV team unfortunately no one available for midline replacement tonight. I had a long discussion with patient and and explained the importance of midline�she will need
replacement and I offered her to stay tonight and have it replaced in the morning. Patient prefers to have her antibiotic dose through an IV here and then to return tomorrow to have the midline replaced. Will proceed with this plan. I did speak
to her about finding of superficial thrombophlebitis on ultrasound. We spoke about using warm compresses we will start her on baby aspirin. Hold off on full anticoagulation as there is no deep extension and this is an upper extremity clot;
furthermore patient is breast-feeding.
*Pulse Oximetry
SaO2: 98
Oxygen Mode of Delivery: Room air
Patient hypoxic: no (98%)
*Critical Care Note
Total Time (30-74mins, 75-104mins- exclusive of procedures): Not Applicable
Data Reviewed
Source: patient and spouse
Patient Management
Escalation/DeEscalation of care consider admission/obs:
Offered admission�shared decision making we will discharge with plan to return for midline replacement
ED Attending Note
-
Portions of this chart may have been created with voice recognition software.� Occasional wrong word or��sound alike� substitutions may have occurred due to the inherent limitations of voice recognition software.
Discharge Plan
Departure
Patient Disposition: Home (Routine Discharge)
Date of Disposition: 08/07/24
Time of Disposition: 02:32
Patient with high blood pressure during this ER visit?: No
Discharge Problem:
Superficial thrombophlebitis
Instructions: Superficial vein phlebitis and thrombosis
Prescriptions:
New
aspirin 81 mg tablet
81 mg PO DAILY 30 Days Qty: 30 0RF
ibuprofen 400 mg tablet
400 mg PO Q6H PRN (Reason: Pain) Qty: 30 0RF
No Action
prenat.vits,sabi,sal-zpzh-tyufc Tablet
1 tab PO DAILY
ibuprofen 600 mg Tablet
600 mg PO Q6HPRN PRN (Reason: cramps) Qty: 90 0RF
acetaminophen [Tylenol Extra Strength] 500 mg Tablet
1,000 mg PO Q6HPRN PRN (Reason: mild pain, fever) Qty: 0 0RF
ferrous sulfate [FeroSul] 325 mg (65 mg iron) Tablet
325 mg PO DAILY Qty: 0 0RF
ceftriaxone 2 gram Recon Soln
2,000 mg IV Q24H Qty: 10 0RF
Referrals:
Sandra Cabral MD [Family Provider, Family Practice] - Follow up in 2-3 days
Activity Restrictions/Additional Instructions:
You should apply warm compresses to your upper arm in the area where the midline was inserted. If you notice worsening swelling or if you are swelling and pain are failing to improve after a few days you should return to the emergency room to be
reassessed.
Thank you for visiting the Emergency Department at [facility].
1. Please schedule a follow up appointment as directed. Call first thing tomorrow morning to make an appointment.
2. If indicated, please take your medications as instructed and indicated on discharge paperwork.
3. If any of your symptoms do not improve, or persist, or become more severe within 6-12 hours, please return to the emergency department for further care.
4. Please return to the emergency department if you develop a headache, neck pain/stiffness, fever greater than 100.4F, chest pain, shortness of breath, persistent nausea, vomiting, slurred speech, difficulty walking, numbness/tingling, weakness,
signs of infection or any other symptoms that are worrisome to you.
Please call [phone] if you have any questions.
Interventions
Interventions:
*Risk Screen - Suicide Last Done: 08/07/24 03:33
*General Assessment Last Done: 08/06/24 21:20
*Neglect/Abuse Screening Last Done: 08/07/24 03:33
*ED- Fall Risk Assessment Last Done: 08/07/24 03:33
*ED COVID-19 Vaccine History Last Done: 08/07/24 03:33
*Nursing Disposition Last Done: 08/07/24 03:33
NS-Zfrvtu-Tsnkxcaecl Assessment Last Done: 08/06/24 23:31
ED-Female Genitourinary Assessment Last Done: 08/06/24 23:31
Discharge Date and Time
Discharge Date/Time: 08/07/24 03:37
Print Language: Syrian
== END 2024-08-07 03:37 | disposition home or self-care (01) ==
LOC: EMR 21:16
PROVIDERS: EMERGENCY PHYSICIAN Emergency Medicine; FAMILY PHYSICIAN Family Medicine
DX: I82.612 Acute embolism and thrombosis of superficial veins of left upper extremity (principal); R78.81 Bacteremia
CPT/HCPCS: 96374; 99284; 93971

== ENCOUNTER 2024-08-07 13:47 | Emergency (ER) | payer OTHER, SELFPAY ==
[2024-08-07 13:49] VITALS: BP 108/74
--- NOTE | 2024-08-07 16:20 | ED.GENMED ---
History of Present Illness
General
Chief Complaint: Catheter/Tube Problem
Source: patient
Exam Limitations: none
Time Seen by Provider: 08/07/24 15:57
History of Present Illness
History of Present Illness:
19yoF who was recently hospitalized for endometritis and S.agalactiae bacteremia currently receiving IV Rocephin presenting for midline placement. Patient was seen in the ED overnight after her midline stopped flushing. Duplex showed a superficial
thrombus in the left basilic vein and midline was removed. There was no IV nurse in the hospital at the time so patient was instructed to return to the ED today for midline placement. Patient has no other complaints. No fevers.
Past History
Past History
ED Past Medical History: None; Negative Asthma, HTN, Hypercholesterolemia or NIDDM
ED Past Surgical History: None
Social History
Tobacco: Non-smoker
Alcohol: None
Personal:
Living: with family
Phy Exam
General Physical Exam
General Presentation: well appearing and no apparent distress
General Skin: warm and dry
General Habitus: normal
General Mental: alert
ENT Exam
ENT Exam: normocephalic
Neurological Exam
Neurological Exam: alert
[place] Coma Scale
Eye Opening: Spontaneous
Verbal Response: Oriented
Motor Response: Obeys Commands
GCS Total Score: 15
Skin Exam
Skin Exam: normal color and warm/dry
Psychiatric Exam
Psychiatric Exam: normal mood/affect
Course
Orders/Labs/Results
Orders:
Orders
08/07/24 17:47
Midline IV As Directed
08/07/24 18:31
CefTRIAXone [Rocephin] 2,000 mg IV NOW STA
Vital Signs
Initial and Last Documented VS:
Initial Vital Signs
Temp Pulse Resp BP Pulse Ox
98.6 F 95 16 108/74 96
08/07/24 13:49 08/07/24 13:49 08/07/24 13:49 08/07/24 13:49 08/07/24 13:49
Last Documented Vital Signs
Temp Pulse Resp BP Pulse Ox
98.6 F 87 18 95/68 95
08/07/24 13:49 08/07/24 18:40 08/07/24 18:40 08/07/24 18:40 08/07/24 18:40
MDM/Problems Addressed
Differential Diagnosis Includes:
19yoF here for midline IV placement after her midline stopped flushing last night and had to be removed. Currently receiving IV antibiotics for bacteremia/endometritis. Patient well-appearing with no other complaints. Vital signs are stable. IV
nurse able to place midline and patient received dose of Rocephin prior to discharge.
*Pulse Oximetry
SaO2: 96
Oxygen Mode of Delivery: Room air
Patient hypoxic: no (96%)
*Critical Care Note
Total Time (30-74mins, 75-104mins- exclusive of procedures): Not Applicable
ED Attending Note
-
Portions of this chart may have been created with voice recognition software.� Occasional wrong word or��sound alike� substitutions may have occurred due to the inherent limitations of voice recognition software.
Discharge Plan
Departure
Patient Disposition: Home (Routine Discharge)
Date of Disposition: 08/07/24
Time of Disposition: 18:14
Patient with high blood pressure during this ER visit?: No
Discharge Problem:
Encounter for intravenous line placement
Instructions: How to care for a midline IV catheter
Prescriptions:
No Action
prenat.vits,sabi,itt-vhig-swugg Tablet
1 tab PO DAILY
ibuprofen 600 mg Tablet
600 mg PO Q6HPRN PRN (Reason: cramps) Qty: 90 0RF
acetaminophen [Tylenol Extra Strength] 500 mg Tablet
1,000 mg PO Q6HPRN PRN (Reason: mild pain, fever) Qty: 0 0RF
ferrous sulfate [FeroSul] 325 mg (65 mg iron) Tablet
325 mg PO DAILY Qty: 0 0RF
ceftriaxone 2 gram Recon Soln
2,000 mg IV Q24H Qty: 10 0RF
aspirin 81 mg tablet
81 mg PO DAILY 30 Days Qty: 30 0RF
ibuprofen 400 mg tablet
400 mg PO Q6H PRN (Reason: Pain) Qty: 30 0RF
Referrals:
Sandra Cabral MD [Family Provider, Family Practice]
Interventions
Interventions:
*Risk Screen - Suicide Last Done: 08/07/24 13:51
*General Assessment Last Done: 08/07/24 14:30
*Neglect/Abuse Screening Last Done: 08/07/24 13:51
*Nursing Disposition Last Done: 08/07/24 18:47
Discharge Date and Time
Discharge Date/Time: 08/07/24 18:48
Print Language: [place] Citizen
[2024-08-07 18:40] VITALS: BP 95/68
[2024-08-07] MEDS: ROCEPHIN 2000 MG IV (18:40)
== END 2024-08-07 18:48 | disposition home or self-care (01) ==
LOC: EMR 13:47
PROVIDERS: EMERGENCY PHYSICIAN Student in an Organized Health Care Education/Training Program; FAMILY PHYSICIAN Family Medicine
DX: Z45.2 Encounter for adjustment and management of vascular access device (principal); T82.594A Other mechanical complication of infusion catheter, initial encounter; X58.XXXA Exposure to other specified factors, initial encounter
CPT/HCPCS: 36569; 99284; 96374

== ENCOUNTER 2024-08-18 01:38 | Observation (INO) | payer OTHER, SELFPAY ==
[2024-08-17 18:44] VITALS: BP 118/79
[2024-08-17 19:18] VITALS: BP 113/53
--- NOTE | 2024-08-17 19:48 | ED.GENMED ---
History of Present Illness
<Mary Dubose MD - Last Filed: 08/18/24 09:40>
General
Chief Complaint: Fever
Source: patient and spouse
Time Seen by Provider: 08/17/24 19:36
History of Present Illness
History of Present Illness:
This patient is a 19-year-old female presents emergency department with fevers and chills associated with mild headache that started today at approximately 1 PM and continuous. She also has mild pain at the inferior aspect of her right breast that
was noted today. When asked about abdominal or pelvic pain she denies this. She did have a 'stomachache' 2 days ago that was short-lived. She denies nausea, vomiting, cough, sore throat, rhinorrhea, ear pain, photophobia, neck pain, rash, recent
tick bites, abdominal pain, back pain, urinary symptoms, vaginal discharge. She has light vaginal bleeding which she was told to expect status post . Patient was recently admitted for bacteremia and endometritis and was on a prolonged
course of IV Rocephin last dose on Wednesday. She tolerated this well and was feeling well until today.
Past History
<Mary Dubose MD - Last Filed: 08/18/24 09:40>
Past History
ED Past Medical History: Other (Endometritis); Negative Asthma, HTN, Hypercholesterolemia or NIDDM
ED Past Surgical History:
Social History
Tobacco: Non-smoker
Alcohol: None
Drug: None
Personal:
Living: with family
Phy Exam
<Mary Dubose MD - Last Filed: 08/18/24 09:40>
Physical Exam
Physical Exam:
GENERAL: Alert , in no apparent distress
EYE: pupils equal and reactive, EOMI, no nystagmus, no photophobia
NECK: Supple, no significant adenopathy.
ENT: o/p clr, mmm, uvula midline, voice clear.
CARDIAC: Regular rate and rhythm .
LUNGS: Clear breath sounds bilaterally, no acute respiratory distress, no wheezes/rales/rhonchi
ABDOMEN: Soft, without focal tenderness, no r/g, no cvat, incision clean dry and intact
NEUROLOGICAL: Alert and oriented, no focal neuro deficits
SKIN: Warm and dry, skin intact.
MUSCULOSKELETAL: No edema, well perfused.
PSYCH: Normal and appropriate interaction.
Sepsis
<Mary Dubose MD - Last Filed: 08/18/24 09:40>
Sepsis Screening
Sepsis Assessment: Sepsis
Sepsis Screen
Sepsis Screen: Sepsis
Date: 08/18/24
Time: 09:37
<Rohan Hansen DO - Last Filed: 08/18/24 02:06>
Sepsis Screen
Sepsis Screen: Sepsis
Date: 08/18/24
Time: 02:00
Course
<Mary Dubose MD - Last Filed: 08/18/24 09:40>
Orders/Labs/Results
Orders:
Orders
08/17/24 19:04
Electrocardiogram (*1) Urgent
Reason for Study: Other
Other Reason for Exam: Possible Sepsis
Cardiac Monitoring- Treatment ONCE
IV Insert/Care/Rem.- Treatment PRN
O2 Therapy [RESP] Urgent
Titrate/Wean O2 to maintain O2 sat greater than (%): 93
Special Instructions: TO MAINTAIN CONTINUOUS O2 SATS > OR = 93%
Pulse Ox/cont/shift [RESP] Urgent
Quantity: 1
Special Instructions: CONTINUOUS
08/17/24 19:06
EKG- Treatment ONCE
Test Result ONCE
08/17/24 19:35
Blood Culture Q20M
AL[facility]A Source: Blood/Venous
Specimen Description:
Comment: Urgent from separate sites. If patient screens positive for possible sepsis
08/17/24 19:36
Complete Blood Count/With Diff Urgent
Comprehensive Metabolic Panel Urgent
HCG, Serum Qualitative Screen Urgent
Comment: Notify provider if positive test present
Lactic Acid Q4H
Comment: ON ICE, CANCEL 2ND ORDER IF FIRST LACTIC ACID LEVEL <2
08/17/24 19:46
Cardiac Monitoring- Treatment ONCE
0.9% Sodium Chloride 1000 ml [Nss] 1,500 ml IV BOLUS
Ketorolac [Toradol] 15 mg IV NOW STA
CR Chest - 2 Views Urgent
Comment:
Reason For Exam: fever
08/17/24 20:12
Blood Culture Q20M
[facility] Source: Blood/Venous
Specimen Description:
Comment: Urgent from separate sites. If patient screens positive for possible sepsis
08/17/24 20:51
CT Abd/Pel (IV only)-DH only Urgent
Comment:
Reason For Exam: recent endometritis
08/17/24 22:26
Piperacillin/Tazo 3.375 Gram [Zosyn] 3.375 gram in 50 ml IV NOW
08/17/24 22:52
Urinalysis Reflex To Culture Urgent
Date Specimen was Collected: 08/17/24
Time Specimen was Collected: 22:49
Urine Microscopic Reflex Cult Urgent
Urine Culture Urgent
ALAINA Source: U
Specimen Description:
Date Specimen was Collected: 08/17/24
Time Specimen was Collected: 22:49
08/17/24 23:34
US Pelvis Only (non-obstetric) Urgent
Comment:
Reason For Exam: possible R ovary abnl
08/17/24 23:58
Vancomycin [Vancocin] 1,500 mg 0.9% Sodium Chloride 500 ml [Nss] 500 ml IV NOW
08/18/24 00:40
Admit Patient As Directed
Co-Sign Provider:
Level of Care: Observation services
Assign to:: [facility]
Physician / Group: ilda norris md
Diagnosis: right mastitis
08/18/24 00:41
PRN Pain Medication Management As Directed
May give lesser potent ordered pain med per pt: Yes
preference::
Protocol:: Medication orders for pain may be administered in a
manner that supports deferring to patient preference
when the pt is:
- Requesting an ordered lesser potent pain medication.
Least to most potent pain medications are defined
as: acetaminophen < NSAID < tramadol < opioids
(morphine, oxycodone, hydromorphone).
- Requesting a lesser dose of the same medication IF
ORDERED.
- Requesting a less intrusive route of administration
if both routes are prescribed by the provider (PO <
IV).
08/18/24 00:42
Foot pumps [Venous Foot Pumps] As Directed
Location: Bilateral feet
08/18/24 00:43
Code Status As Directed
Resuscitation Status: Full Code
Activity As Directed
Activity Level: Bathroom Privileges
Advance Diet as Tolerated As Directed
Goal Diet: Regular
DX Deep Vein Thrombosis Video Routine
08/18/24 00:45
INT (Intravenous Needle Therapy) As Directed
08/18/24 00:46
CONSULT Routine
08/18/24 00:51
Ibuprofen [Motrin] 600 mg PO Q6HPRN PRN
08/18/24 00:59
Polyethylene Glycol Powder [Miralax] 17 grams PO DAILYPRN PRN
08/18/24 01:07
Acetaminophen [Tylenol] 500 mg PO Q6HPRN PRN mild pain
08/18/24 01:14
Genital Culture Urgent
[facility]A Source: Cervix
Specimen Description:
Date Specimen was Collected: 08/18/24
Time Specimen was Collected: 01:03
08/18/24 01:15
0.9% Sodium Chloride 1000 ml [Nss] 1,000 ml IV 125 mls/hr
08/18/24 02:00
Piperacillin/Tazo 2.25 Gram [Zosyn] 2.25 grams in 50 ml IV Q8H
08/18/24 04:00
Piperacillin/Tazo 3.375 Gram [Zosyn] 3.375 gram in 50 ml IV Q6H
08/18/24 Breakfast
Regular
At Your Request: Full Participation
Does patient need a safe tray?: No
08/18/24 06:08
Complete Blood Count/With Diff IN AM
08/18/24 08:00
MULTIPLE VITAMIN w/FE [ Plus] 1 tablet PO DAILY
Abnormal Lab Results
08/17/24 08/17/24
19:36 22:52
RBC 4.04 L 10^6/uL
(4.20-5.40)
Hgb 11.8 L g/dL
(12.0-16.0)
Hct 35.2 L %
(37.0-47.0)
Plt Count 524 H 10^3/uL
(130-400)
Absolute Neuts (auto) 8.2 H 10^3/uL
(1.4-6.5)
Absolute Monos (auto) 0.7 H 10^3/uL
(0.1-0.6)
Neutrophils % 80.4 H %
(42.2-75.2)
Lymphocytes % 11.8 L %
(20.5-51.1)
Alkaline Phosphatase 133 H U/L
(38-126)
Ur Occult Blood Reflex 4+ A
(Negative)
Leukocyte Esterase Rfl 2+ A
(Negative)
Urine RBC 3-6 A /HPF
(0-2)
Urine Bacteria (Reflex) Few A
(Negative)
Urine Albumin (Reflex) 1+ A
(Neg - Trace)
08/17/24 19:36
08/17/24 19:36
Vital Signs
Initial and Last Documented VS:
Initial Vital Signs
Temp Pulse Resp BP Pulse Ox
103 F H 114 20 118/79 97
08/17/24 18:44 08/17/24 18:44 08/17/24 18:44 08/17/24 18:44 08/17/24 18:44
Last Documented Vital Signs
Temp Pulse Resp BP Pulse Ox
98.8 F 82 14 119/74 99
08/18/24 08:31 08/18/24 08:31 08/18/24 08:31 08/18/24 08:31 08/18/24 02:31
<Rohan Hansen, - Last Filed: 08/18/24 02:06>
Orders/Labs/Results
Orders:
Orders
08/17/24 19:04
Electrocardiogram (*1) Urgent
Reason for Study: Other
Other Reason for Exam: Possible Sepsis
Cardiac Monitoring- Treatment ONCE
IV Insert/Care/Rem.- Treatment PRN
O2 Therapy [RESP] Urgent
Titrate/Wean O2 to maintain O2 sat greater than (%): 93
Special Instructions: TO MAINTAIN CONTINUOUS O2 SATS > OR = 93%
Pulse Ox/cont/shift [RESP] Urgent
Quantity: 1
Special Instructions: CONTINUOUS
08/17/24 19:06
EKG- Treatment ONCE
Test Result ONCE
08/17/24 19:35
Blood Culture Q20M
[facility] Source: Blood/Venous
Specimen Description:
Comment: Urgent from separate sites. If patient screens positive for possible sepsis
08/17/24 19:36
Complete Blood Count/With Diff Urgent
Comprehensive Metabolic Panel Urgent
HCG, Serum Qualitative Screen Urgent
Comment: Notify provider if positive test present
Lactic Acid Q4H
Comment: ON ICE, CANCEL 2ND ORDER IF FIRST LACTIC ACID LEVEL <2
08/17/24 19:46
Cardiac Monitoring- Treatment ONCE
0.9% Sodium Chloride 1000 ml [Nss] 1,500 ml IV BOLUS
Ketorolac [Toradol] 15 mg IV NOW STA
CR Chest - 2 Views Urgent
Comment:
Reason For Exam: fever
08/17/24 20:12
Blood Culture Q20M
[facility] Source: Blood/Venous
Specimen Description:
Comment: Urgent from separate sites. If patient screens positive for possible sepsis
08/17/24 20:51
CT Abd/Pel (IV only)-DH only Urgent
Comment:
Reason For Exam: recent endometritis
08/17/24 22:26
Piperacillin/Tazo 3.375 Gram [Zosyn] 3.375 gram in 50 ml IV NOW
08/17/24 22:52
Urinalysis Reflex To Culture Urgent
Date Specimen was Collected: 08/17/24
Time Specimen was Collected: 22:49
Urine Microscopic Reflex Cult Urgent
Urine Culture Urgent
AL[facility]A Source: U
Specimen Description:
Date Specimen was Collected: 08/17/24
Time Specimen was Collected: 22:49
08/17/24 23:34
US Pelvis Only (non-obstetric) Urgent
Comment:
Reason For Exam: possible R ovary abnl
08/17/24 23:58
Vancomycin [Vancocin] 1,500 mg 0.9% Sodium Chloride 500 ml [Nss] 500 ml IV NOW
08/18/24 00:40
Admit Patient As Directed
Co-Sign Provider:
Level of Care: Observation services
Assign to:: [facility]
Physician / Group: ilda norris md
Diagnosis: right mastitis
08/18/24 00:41
PRN Pain Medication Management As Directed
May give lesser potent ordered pain med per pt: Yes
preference::
Protocol:: Medication orders for pain may be administered in a
manner that supports deferring to patient preference
when the pt is:
- Requesting an ordered lesser potent pain medication.
Least to most potent pain medications are defined
as: acetaminophen < NSAID < tramadol < opioids
(morphine, oxycodone, hydromorphone).
- Requesting a lesser dose of the same medication IF
ORDERED.
- Requesting a less intrusive route of administration
if both routes are prescribed by the provider (PO <
IV).
08/18/24 00:42
Foot pumps [Venous Foot Pumps] As Directed
Location: Bilateral feet
08/18/24 00:43
Code Status As Directed
Resuscitation Status: Full Code
Activity As Directed
Activity Level: Bathroom Privileges
Advance Diet as Tolerated As Directed
Goal Diet: Regular
DX Deep Vein Thrombosis Video Routine
08/18/24 00:45
INT (Intravenous Needle Therapy) As Directed
08/18/24 00:46
CONSULT Routine
08/18/24 00:51
Ibuprofen [Motrin] 600 mg PO Q6HPRN PRN
08/18/24 00:59
Polyethylene Glycol Powder [Miralax] 17 grams PO DAILYPRN PRN
08/18/24 01:07
Acetaminophen [Tylenol] 500 mg PO Q6HPRN PRN mild pain
08/18/24 01:14
Genital Culture Urgent
AL[facility] Source: Cervix
Specimen Description:
Date Specimen was Collected: 08/18/24
Time Specimen was Collected: 01:03
08/18/24 01:15
0.9% Sodium Chloride 1000 ml [Nss] 1,000 ml IV 125 mls/hr
08/18/24 02:00
Piperacillin/Tazo 2.25 Gram [Zosyn] 2.25 grams in 50 ml IV Q8H
08/18/24 04:00
Piperacillin/Tazo 3.375 Gram [Zosyn] 3.375 gram in 50 ml IV Q6H
08/18/24 Breakfast
Regular
At Your Request: Full Participation
Does patient need a safe tray?: No
08/18/24 06:08
Complete Blood Count/With Diff IN AM
08/18/24 08:00
MULTIPLE VITAMIN w/FE [ Plus] 1 tablet PO DAILY
Abnormal Lab Results
08/17/24 08/17/24
19:36 22:52
RBC 4.04 L 10^6/uL
(4.20-5.40)
Hgb 11.8 L g/dL
(12.0-16.0)
Hct 35.2 L %
(37.0-47.0)
Plt Count 524 H 10^3/uL
(130-400)
Absolute Neuts (auto) 8.2 H 10^3/uL
(1.4-6.5)
Absolute Monos (auto) 0.7 H 10^3/uL
(0.1-0.6)
Neutrophils % 80.4 H %
(42.2-75.2)
Lymphocytes % 11.8 L %
(20.5-51.1)
Alkaline Phosphatase 133 H U/L
(38-126)
Ur Occult Blood Reflex 4+ A
(Negative)
Leukocyte Esterase Rfl 2+ A
(Negative)
Urine RBC 3-6 A /HPF
(0-2)
Urine Bacteria (Reflex) Few A
(Negative)
Urine Albumin (Reflex) 1+ A
(Neg - Trace)
08/17/24 19:36
08/17/24 19:36
Vital Signs
Initial and Last Documented VS:
Initial Vital Signs
Temp Pulse Resp BP Pulse Ox
103 F H 114 20 118/79 97
08/17/24 18:44 08/17/24 18:44 08/17/24 18:44 08/17/24 18:44 08/17/24 18:44
Last Documented Vital Signs
Temp Pulse Resp BP Pulse Ox
98.8 F 82 14 119/74 99
08/18/24 08:31 08/18/24 08:31 08/18/24 08:31 08/18/24 08:31 08/18/24 02:31
<Mary Dubose MD - Last Filed: 08/18/24 09:40>
*Pulse Oximetry
SaO2: 97
Oxygen Mode of Delivery: Room air
Patient hypoxic: no
*Critical Care Note
Total Time (30-74mins, 75-104mins- exclusive of procedures): Not Applicable
<Mary Dubose MD - Last Filed: 08/18/24 09:40>
Update Note
Update Note:
Patient presents to the Emergency Department with __fever chills breast pain mild headache
Number and Complexity of Problems Addressed at the Encounter
� Chronic conditions affecting care:
� Acute Exacerbation and/or Progression of Chronic Illness:
� Differential Diagnosis includes: But not limited to recurrent bacteremia, sepsis, mastitis, etc. etc.
Amount and/or Complexity of Data to be Reviewed and Analyzed
� I performed an independent evaluation of and my interpretation is:
EKG: Read by me, sinus tachycardia, no acute ischemia
CT:
Xrays: Chest x-ray read by me NAD
Laboratory Studies: Mild anemia, mild thrombocytosis, negative, lactic acid within normal limits
Other:
� Review of other/old records reveals: Discharge summary reviewed from patient's admission for endometritis and bacteremia. Echocardiogram without vegetations, discharged on IV Rocephin
� Clinical information was obtained by an independent historian: who is at bedside and serves as technical intern at her request as well
� Prescriptions/Medications Considered but not given:
� Further testing considered but not performed:
Risk of Complications and/or Morbidity or Mortality of Patient Management
� Social determinants of health affecting care:
� Discussion with other providers (PCP, Hospitalists, Consultants, etc):
� Escalation of care including admission/observation vs risk of discharge considered: CT pending, overall there is some suspicion that her symptoms could be related to mastitis. Pump ordered from [facility]P to encourage flow,
antibiotics ordered, patient will be admitted. UA pending, patient does not have CVA tenderness to suggest pyelo-
10:44 PM surprisingly, CAT scan suggest the possibility of an acute ovarian torsion. I immediately notified [facility], Dr. Norris, who will be here to see patient shortly. I then notified patient and her . Patient continues to deny pelvic or
abdominal pain does not have nausea or vomiting.
1136 pm Pt seen by Dr Norris, agrees that hx/phys not c/w suspected torsion. We will get an US now to further assess, admit for IV abx given likely mastitis. Of note, I called UC and asked that she be moved as nexdt US b/c urgent, and pt does
not need to have a full bladder given urgency.
<Rohan Hansen, DO - Last Filed: 08/18/24 02:06>
Update Note
Update Note:
Patient presents to the Emergency Department with __fever chills breast pain mild headache
Number and Complexity of Problems Addressed at the Encounter
� Chronic conditions affecting care:
� Acute Exacerbation and/or Progression of Chronic Illness:
� Differential Diagnosis includes: But not limited to recurrent bacteremia, sepsis, mastitis, etc. etc.
Amount and/or Complexity of Data to be Reviewed and Analyzed
� I performed an independent evaluation of and my interpretation is:
EKG: Read by me, sinus tachycardia, no acute ischemia
CT:
Xrays: Chest x-ray read by me NAD
Laboratory Studies: Mild anemia, mild thrombocytosis, negative, lactic acid within normal limits
Other:
� Review of other/old records reveals: Discharge summary reviewed from patient's admission for endometritis and bacteremia. Echocardiogram without vegetations, discharged on IV Rocephin
� Clinical information was obtained by an independent historian: who is at bedside and serves as technical intern at her request as well
� Prescriptions/Medications Considered but not given:
� Further testing considered but not performed:
Risk of Complications and/or Morbidity or Mortality of Patient Management
� Social determinants of health affecting care:
� Discussion with other providers (PCP, Hospitalists, Consultants, etc):
� Escalation of care including admission/observation vs risk of discharge considered: CT pending, overall there is some suspicion that her symptoms could be related to mastitis. Pump ordered from [facility]P to encourage flow,
antibiotics ordered, patient will be admitted. UA pending, patient does not have CVA tenderness to suggest pyelo-
10:44 PM surprisingly, CAT scan suggest the possibility of an acute ovarian torsion. I immediately notified [facility], Dr. Norris, who will be here to see patient shortly. I then notified patient and her . Patient continues to deny pelvic or
abdominal pain does not have nausea or vomiting.
1136 pm Pt seen by Dr Norris, agrees that hx/phys not c/w suspected torsion. We will get an US now to further assess, admit for IV abx given likely mastitis. Of note, I called and asked that she be moved as nexdt US b/c urgent, and pt does
not need to have a full bladder given urgency.
Preliminary Radiology Report
[facility], [facility] - Phone
[facility]
NAME: JM GOINS
DATE OF EXAM: 08/18/2024
Patient No: [id number]
Physician: JOSÉ MIGUEL^MINDA
Date of : 2005
Past Medical History (entered by Technologist):
Reason For Exam (entered by Technologist):
Other Notes (entered by Technologist):
Additional Information (per [facility]): Pain, concern for torsion
ULTRASOUND PELVIS
IMPRESSION:
Comparison: CT on 08/17/[address] on 07/30/2024.
Normal-sized ovaries containing Doppler flow.
Normal-sized uterus.
Small amount of free fluid.
Case discussed with Dr. Hansen in the ED at 1:57 AM ET.
Herman Webb M.D.
ED Attending Note
<Mary Dubose MD - Last Filed: 08/18/24 09:40>
-
Portions of this chart may have been created with voice recognition software.� Occasional wrong word or��sound alike� substitutions may have occurred due to the inherent limitations of voice recognition software.
Discharge Plan
Departure
Patient Disposition: Admit
Date of Disposition: 08/17/24
Time of Disposition: 23:37
Admit to doctor: jr
Presentation/result/management discussed w/ accepting MD/DO: Jr
Condition: Fair
Discharge Problem:
Mastitis
Interventions
Interventions:
*Risk Screen - Suicide Last Done: 08/18/24 02:54
*General Assessment Last Done: 08/17/24 19:14
*Neglect/Abuse Screening Last Done: 08/17/24 18:44
*ED- Fall Risk Assessment Last Done: 08/17/24 19:14
*ED COVID-19 Vaccine History Last Done: 08/18/24 02:43
*Nursing Disposition Last Done: 08/18/24 02:04
ED- Neurological Assessment Last Done: 08/17/24 19:14
ED-Skin Assessment Last Done: 08/17/24 19:14
Discharge Date and Time
Discharge Date/Time: 08/18/24 02:04
[2024-08-17 19:49] LABS: Hematocrit 35.2 % (37.0-47.0); Hemoglobin 11.8 g/dL (12.0-16.0); Mean Corp Hgb Conc. 33.5 g/dL (33.0-37.0); Mean Corpuscular Volume 87.1 fL (81.0-99.0); Nucleated Red Blood Cells % 0 %; Platelet Count 524 10^3/uL (130-400); Red Cell Dist. Width 13.1 % (11.5-14.5)
[2024-08-17 20:00] VITALS: BP 111/63
[2024-08-17] MEDS: TORADOL 15 MG IV (20:04)
[2024-08-17] MEDS: NSS 1500 IV (20:07)
[2024-08-17 20:14] LABS: HCG, Serum Qualitative Screen Negative
[2024-08-17 20:18] LABS: ALT (SGPT) 21 U/L (0-35); AST (SGOT) 23 U/L (14-36); Albumin 4.5 g/dl (3.5-5.0); Alkaline Phosphatase 133 U/L (38-126); Blood Urea Nitrogen 13 mg/dl (7-17); Calcium 9.7 mg/dl (8.4-10.2); Carbon Dioxide 22 mmol/L (22-30); Chloride 107 mmol/L (98-107); Glucose 96 mg/dl (70-99); Potassium 4.1 mmol/L (3.5-5.1); Sodium 139 mmol/L (135-145); Total Protein 7.6 g/dl (6.3-8.2); eGFR > 60.00
[2024-08-17 22:33] VITALS: BMI 22.3
[2024-08-17] MEDS: ZOSYN 50 IV (22:41)
[2024-08-17 23:10] LABS: Urine Character Clear (Clear)
[2024-08-17 23:37] LABS: Urine Squamous Cell >30 /LPF (Few)
--- NOTE | 2024-08-17 23:59 | HPS.HSE ---
Family Physician
-
Family Physician: Sandra Cabral MD
Chief Complaint
-
fever,headache, right breast pain
History of Present Illness
19 y/o S/p P LTCS 07/24/2024 complicated by post endometritis and bacteremia with recent completion of IV antibiotics who presents with fever, chills, right breast pain, headache. Patient without LEFT breast pain, abdominal pain, nausea,
vomiting, cough, sore throat, UTI symptoms. No diarrhea, has been constipated. Still with small amount of vaginal bleeding/brown discharge, no odor or irritation.
Patient interviewed with language line/counter control operator services and assisting.
Pt was feeling much better until this afternoon. Had picc line removed several days ago. Is pumping. Presents to ED for evaluation. Called to see patient due to new CT finding of 3.6 cm oval-shaped structure posterior to ascending colon surrounded
by moderate inflammation which was not on prior CT scan 07/30/24. Radiologist concerned about right ovarian torsion.
Patient upon my arrival, receiving Zosyn.
Medical History
Past Medical History
Past Medical History: Reports None
Additional Past Medical History:
endometritis and bacteremia (07/2024)
Past Surgical History: Reports
Social History
Unable to obtain full social history at this time due to: Language Barrier
Tobacco: Non-smoker
Alcohol: None
Drug: None
Personal:
Living: With Family
Family History
Family History: Not pertinent
Allergies / Home Medications
Allergies reflects when Allergies were last updated in [employer]
Home Medications with original date entered in [employer]
Allergy/Medication List:
none
Review of Systems
-
Constitutional: Reports See HPI
EENT: Reports No Symptoms
Respiratory: Reports No Symptoms
Cardiac: Reports No Symptoms
Abdomen/GI: Reports See HPI and Constipated
: Reports See HPI
Musculoskeletal: Reports No Symptoms
Skin: Reports No Symptoms
Neurological: Reports No Symptoms
Endocrine: Reports No Symptoms
Hematologic/Lymphatic: Reports No Symptoms
Psych: Reports No Symptoms
Physical Exam
Vital Signs
Vital Signs
Temp Pulse Resp BP Pulse Ox
100.7 F H 93 14 111/63 97
08/17/24 19:30 08/17/24 21:15 08/17/24 21:15 08/17/24 20:00 08/17/24 21:15
Physical Exam
General: Well Developed, Well Nourished, Comfortable and Conversant
HEENT: NormoCephalic
Respiratory: Clear
Cardiac: Regular Rhythm
Breast: Skin Changes (Right breast with redness from 4-8 o'clock, with tenderness, LEFT breast normal)
GI: Soft, Non Tender, Non Distended and Normal Bowel Sounds (Incision well healed. Uterus at 14 week size, nontender)
Rectal: Deferred by Provider
Genito-urinary: Other (vulva-clear. Vagina-small ampount brown d/c noted. cervix-no cervical motion tenderness, culture taken. Uterus-enlarged 12-24 weeks, nontender. Adnexa-nontender)
Skin: Warm and Dry
Neuro: Awake, Alert and AO x 3
Psych: Calm
Laboratory Results
-
08/17/24 19:36
08/17/24 19:36
Laboratory Results
Lactic Acid Cancelled 08/17/24 23:15
Total Bilirubin 0.5 mg/dl (0.2-1.3) 08/17/24 19:36
AST 23 U/L (14-36) 08/17/24 19:36
ALT 21 U/L (0-35) 08/17/24 19:36
Alkaline Phosphatase 133 U/L (38-126) H 08/17/24 19:36
Data Reviewed
-
Diagnostic Radiology: Image Personally Visualized and interpreted, Discussed with Physician, Discussed with Patient and Discussed with Family
CT Scan: Image Personally Visualized and interpreted, Report Reviewed by me, Discussed with Physician and Discussed with Family
Medical Tests (Nuc Med, Echo, EKG etc): Image Personally Visualized and interpreted, Report Reviewed by me and Discussed with Patient
Lab Data: Labs Reviewed by me, Discussed with Physician, Discussed with Patient and Discussed with Family
Old Records: Reviewed
Impression/Plan
-
IMPRESSION:Right mastitis-Continue with Zosyn IV, continue with pumping, consult in AM
RIGHT lower abdominal findings on CT scan-CT scan reviewed personally with radiologist, clinically no evidence of torsion
history of endometritis and bacteremia
PLAN:
Admit to observation for continued IV antibiotics
Continue with Zosyn IV, continue with pumping, consult in AM
Will proceed with pelvic ultrasound for further clarity of right lower abdominal findings on CT scan.
[2024-08-18] MEDS: VANCOCIN 530 MG IV (01:06)
--- NOTE | 2024-08-18 01:21 | W.PN.UPDATE ---
Update Note
Progress Note Update
Ultrasound reviewed with Radiologist, right ovary is normal, no evidence for torsion.
[2024-08-18] MEDS: NSS 1000 IV ×2 (02:02→09:56)
[2024-08-18 02:31] VITALS: BP 108/71
[2024-08-18] MEDS: BENADRYL 25 MG PO (03:41)
[2024-08-18] MEDS: ZOSYN 50 IV ×4 (04:15→21:45)
--- NOTE | 2024-08-18 05:39 | PTCARENOTE ---
0230 Pt received from ED to Room 220. Language line utilized to complete admission assessment. IV OF NSS infusing via pump to Left Antecubital site. Vancomycin infusing as well. Upon assessment of patient, her neck and left ear are red, and she is
very itchy on the neck and scalp. Pt denies shortness of breath or throat itchiness/closing up. Vancomycin had approx 75ml left to infuse, but this nurse stopped the infusion. Dr. Puckett notified and new order received. Benadryl 25mg po given
as per MD order. Pt set up to pump, breastmilk is actively leaking from breasts. No redness or warmth noted on right breast, pt is afebrile @ this time. Pt oriented to room and call green is within reach. Pt has no complaints of pain, and denies need
for pain medication. Pt is very sleepy and is going to try and get some rest. Caitlin Armenta, RNC-MNN
[2024-08-18 06:20] LABS: Hematocrit 31.4 % (37.0-47.0); Hemoglobin 10.5 g/dL (12.0-16.0); Mean Corp Hgb Conc. 33.4 g/dL (33.0-37.0); Mean Corpuscular Volume 89.5 fL (81.0-99.0); Nucleated Red Blood Cells % 0 %; Platelet Count 415 10^3/uL (130-400); Red Cell Dist. Width 13.2 % (11.5-14.5)
--- NOTE | 2024-08-18 07:58 | W.PN.UPDATE ---
Update Note
Progress Note Update
Reviewed final U/S report with radiologist. Will order Hematology consult to determine what, if any, management is required.
[2024-08-18 08:31] VITALS: BP 119/74
--- NOTE | 2024-08-18 09:29 | CON.ONC ---
Documented by User: KENDY Vergara 08/18/24 12:19
Consultation
-
Date Consultation Requested: 08/18/24
Date Consultation Performed: 08/18/24
Requesting Provider: Dr. Jessee Puckett
Performing Provider: Dr. Demond Peacock
Reason for Consultation: ACUTE THROMBOPHLEBITIS of the RIGHT GONADAL VEIN.
Impression
Impression
19yo F s/p C section 07/24/2024 c/b post opeative endometriosis, bacteremia treated with abx now admitted with a provoked acute thrombophlebitis of the right gonadal vein
Plan
Plan
abx per ID/primary service
3 months anticoagulation for provoked VTE -with we discussed preference for enoxaparin 1mg/kg BID -she is agreeable
check baseline ddimer, PT/INR/PTT
check APLS panel
pain management
OP follow up will be arranged upon discharge -office information provided
Patient History
History of Present Illness
Declined pantographer with preference to utilize for translation at bedside
19yo F s/p C section 07/24/2024 c/b post operative endometriosis, bacteremia treated with IV abx who presented with fever, chills, headache, and breast pain. Initial evaluation was notable for WBC 10.2, hgb 11.8, platelet count 524, 000, Alk phos
133 (improving) with otherwise normal LFTs and normal renal function. Her CXR showed no evidence of PNA or acute cardiopulmonary disease. Her CT ab/pelvis with IVC showed an acute thrombophlebitis of the right gonad. Her pelvic US showed no
sonographic evidence for abnormal ovarian enlargement or ovarian mass. Her LUE US to evaluate LUE pain on 08/07/2024 showed an occlusive catheter associated superficial vein thrombosis within the left basilic vein. Prior to delivery, she denies any
history of personal thrombosis. She also denies any history of family thrombophilias or thrombosis. She reports light post bleeding. She denies any overt abdominal pain, n/v/d/c.
Tmax 103F, no hypoxia or hypotension.
Past-Medical/Surgical History
PMH endometritis and bacteremia (07/2024)
PSH
Social non smoker, denies ETOH or recreational drugs. Lives with . Homemaker
Family non-contributory
Patient Medication
�Medication �Instructions �Recorded �Confirmed �Last Taken �Type
acetaminophen 500 mg tablet 500 mg PO Q6HPRN PRN mild pain 08/17/24 08/17/24 08/17/24 History
(Tylenol Extra Strength)
Active Medications
Generic Name Dose Route Start Last Admin
Trade Name Freq PRN Reason Stop Dose Admin
Acetaminophen 500 mg 08/18/24 01:07
Acetaminophen 500 Mg Tablet PO 09/15/24 01:06
Q6HPRN PRN
mild pain
Diphenhydramine HCl 25 mg 08/18/24 03:34 08/18/24 03:41
Diphenhydramine 25 Mg Capsule PO 09/15/24 03:33 25 mg
Q6HPRN PRN Administration
ITCH
Sodium Chloride 1,000 mls @ 125 mls/hr 08/18/24 01:15 08/18/24 02:02
Nss IV 1,000 mls
.Q8H SAMANTHA Administration
Piperacillin Sod/Tazobactam Sod 3.375 gram in 50 mls @ 100 mls/hr 08/18/24 04:00 08/18/24 04:15
Zosyn IV 50 mls
Q6H SAMANTHA Administration
Ibuprofen 600 mg 08/18/24 00:51
Ibuprofen 600 Mg Tablet PO 09/15/24 00:50
Q6HPRN PRN
pain
Polyethylene Glycol 17 grams 08/18/24 00:59
Polyethylene Glycol Powder 17 Grams Packet PO 09/15/24 00:58
DAILYPRN PRN
constipation
Prenat Multivit/[place]/Iron/Folic Ac 1 tablet 08/18/24 08:00
Multiple Vitamin/Minerals With Iron Tablet PO 09/15/24 07:59
DAILY SAMANTHA
Review of Systems
-
ROS is notable for HPI, otherwise negative
Physical Exam
-
General: Well Nourished and No Apparent Distress
HEENT: Moist Mucous Membranes; Negative Jaundice
Cardiology: Normal Sinus Rhythm
Pulmonary: Clear
GI: Soft
Extremities: Pulses Present; Negative Edema
Neurology: Non Focal
Skin: Warm and Other (right breast red & tender )
Psych: Calm
Labs
Lab Results
WBC 6.9 10^3/uL (4.8-10.8) 08/18/24 06:08
RBC 3.51 10^6/uL (4.20-5.40) L 08/18/24 06:08
Hgb 10.5 g/dL (12.0-16.0) L 08/18/24 06:08
Hct 31.4 % (37.0-47.0) L 08/18/24 06:08
MCV 89.5 fL (81.0-99.0) 08/18/24 06:08
MCH 29.9 pg (27.0-31.0) 08/18/24 06:08
MCHC 33.4 g/dL (33.0-37.0) 08/18/24 06:08
RDW 13.2 % (11.5-14.5) 08/18/24 06:08
Plt Count 415 10^3/uL (130-400) H D 08/18/24 06:08
MPV 8.9 fL (7.4-10.4) 08/18/24 06:08
Abs Immat Gran (auto) 0.0 10^3/uL (0-0.05) 08/18/24 06:08
Absolute Neuts (auto) 4.4 10^3/uL (1.4-6.5) 08/18/24 06:08
Absolute Lymphs (auto) 1.7 10^3/uL (1.2-3.4) 08/18/24 06:08
Absolute Monos (auto) 0.7 10^3/uL (0.1-0.6) H 08/18/24 06:08
Absolute Eos (auto) 0.1 10^3/uL (0-0.7) 08/18/24 06:08
Absolute Basos (auto) 0.0 10^3/uL (0-0.2) 08/18/24 06:08
Immature Gran % 0.1 % (0-0.5) 08/18/24 06:08
Neutrophils % 63.3 % (42.2-75.2) 08/18/24 06:08
Lymphocytes % 24.9 % (20.5-51.1) 08/18/24 06:08
Monocytes % 9.9 % (1.7-9.3) H 08/18/24 06:08
Eosinophils % 1.4 % (0-6) 08/18/24 06:08
Basophils % 0.4 % (0-2) 08/18/24 06:08
Creatinine 0.6 mg/dL (0.6-1.0) 08/17/24 19:36
Vital Signs
Vital Signs
Temp Pulse Resp BP Pulse Ox
98.8 F 82 14 119/74 99
08/18/24 08:31 08/18/24 08:31 08/18/24 08:31 08/18/24 08:31 08/18/24 02:31

Documented by User: Demond Peacock MD 08/18/24 12:35
Plan
Plan
abx per ID/primary service
3 months anticoagulation for provoked VTE -with we discussed preference for enoxaparin 1mg/kg BID -she is agreeable
check baseline ddimer, PT/INR/PTT
check APLS panel
pain management
OP follow up will be arranged upon discharge -office information provided
Hematology Addendum:
Patient seen and evaluated and agree w/ METAL MOULDER note and plan as outlined
-gonal vein thrombosis - provoked - post- - s/p
-lovenox 1mg/kg for at least 3 months
-will arrnage outpt f/u
[2024-08-18] MEDS: PRENATAL PLUS 1 TABLET PO (09:56)
[2024-08-18] MEDS: LOVENOX 60 MG SC (13:28)
[2024-08-18 13:44] VITALS: BP 127/76
[2024-08-18 15:38] LABS: INR 1.07; PT 14.2 Sec (11.4-14.6)
[2024-08-18 15:39] LABS: APTT 39.2 Sec (23.4-35.0)
[2024-08-18 15:41] LABS: D-Dimer 2.11 ug/mlFEU (0.00-0.50)
--- NOTE | 2024-08-18 15:55 | W.PN.OBG.DWH ---
Today's Communication / Plan
-
Continue Zosyn
Lovenox per Heme
Can d/c IVF
Regular diet
Advised I want to wait for blood cx results before she can be d/c home.
Assessment/Plan
-
19yo with Mastitis and Acute Thrombophlebitis
1. Mastitis: - Patient recently hospitalized for endometritis with +blood cx so admitted for IV antibiotics as we await results of repeat blood cultures, genital culture and Ucx. If blood cultures negative then can be d/c home with oral antibiotics
to complete a 10 day course of treatment for mastitis.
-No leukocytosis. CBC daily
-continue Zosyn
-patient seems to be clinically improving
-motrin, tylenol as needed for pain/fever
2. Thrombophlebitis
-s/p heme consult. Recommended therapeutic Lovenox for 3 months
-spoke with I.D to determine if any change in Abx regimen is recommended in this setting but they did not feel it was needed.
Subjective Data
-
Intpt# [id number]
patient feels okay, better than yesterday as she has had no further fevers since admission. Still having some right breast pain. No abdominal pain. No n/v. Tolerating PO intake.
Objective Data
-
Laboratory Results
08/18/24 06:08
08/17/24 19:36
Vital Signs
Temp Pulse Resp BP Pulse Ox
98.1 F 64 4 127/76 99
08/18/24 13:44 08/18/24 13:44 08/18/24 13:44 08/18/24 13:44 08/18/24 02:31
Tmax 103 @ 1844 7/10
Last Fever 100.7 @1930 7/10
Gen: nad lying in bed
Breast: +mild erythema at approx 6-8oclock position of the right breast, feels engorged, no significant ttp
Abd: soft, nt, nd, fundus firm without ttp
CT SCAN ADDENDUM: An ultrasound examination of the pelvis was performed 08/18/2024 demonstrating a normal right ovary. The oval-shaped structure posterior to the proximal ascending colon appears to be in the same location as a tortuous vein seen on
the prior CT examination 07/30/2024 which is now surrounded by inflammation. The appearance is most consistent with ACUTE THROMBOPHLEBITIS of the RIGHT GONADAL VEIN.
[2024-08-18 20:20] VITALS: BP 122/69
[2024-08-18 23:35] VITALS: BP 129/70
[2024-08-19] MEDS: LOVENOX SC ×3 (00:20→16:44)
[2024-08-19] MEDS: ZOSYN 50 IV ×2 (04:09→09:51)
[2024-08-19 04:16] VITALS: BP 113/81
[2024-08-19 05:47] LABS: Hematocrit 30.8 % (37.0-47.0); Hemoglobin 10.3 g/dL (12.0-16.0); Mean Corp Hgb Conc. 33.4 g/dL (33.0-37.0); Mean Corpuscular Volume 88.3 fL (81.0-99.0); Nucleated Red Blood Cells % 0 %; Platelet Count 446 10^3/uL (130-400); Red Cell Dist. Width 13.1 % (11.5-14.5)
[2024-08-19] MEDS: PRENATAL PLUS 1 TABLET PO (08:30)
[2024-08-19 08:56] VITALS: BP 136/76
--- NOTE | 2024-08-19 13:38 | W.PN.OBG.DWH ---
Today's Communication / Plan
-
mastitis
thrombophlebitis right gonadal vein.-Pt seems willing to take lovenox after conversation through recycling or rubbish collector line today. Will review option for eliquis if discontinues .
She declined receiving lovenox until her comes.
Case mgmt consult regarding home VN and teaching for lovenox injection if she plans to continue to breastfeed.
Possible discharge to home pending transportation logistics internship input.
time spent with languaage line and pt 30 min plus additional time for docuemntation and discussion with Dr. Marroquin on day of visit added additional 30 min for 60 min total.
Assessment/Plan
-
mastitis- has been on zosyn since 08/17- improving. Will change to oral abx.
right gonadal vein thrombophlebitis- Lengthy conversation regarding diagnosis and implications of dx, including high risk for clot worsening or traveling (embolus) which can be/is life threatening. Explained that eliquis is not compatible with
. Heparin and lovenox would be options but both require injections twice daily. Coumadin not good option due to needing frequent blood draws and adjustments. After discussion, patient and expressed understanding that
thrombophlebitis is dangerous to leave untreated and anticoagulation is recommended to reduce risk for embolus which is life threatening. There is option to stop and could consider eliquis. I did touch base with Dr. Marroquin
(hematology) as well. Pt agreed for lovenox and she and are aware she will need twice a day for 3 months and she will need to continue at home. Danger of refusing/not taking anticoagulation also reviewed. She refuses injection until her
comes in which he says will be within the hour.
Will wait for Dr. Saab to come see her.
Will dc zosyn start oral abx for mastitis.
Anticipate possible dc
genital culture pending.
Subjective Data
-
Pt seen and examined and visit done through [employer] recycling or rubbish collector for Abbie Anders [id number].
She reports feeling better today. Denies any fever, chills, abdominal or pelvic pain, flank pain. Breast pain is better. No dysuria.Denies incisional concerns.
No CP, SOB
Per RN, pt refused lovenox yesterday and today. Pt reports she is afraid of needles. asking if there is alternative way to treat.
Objective Data
-
Laboratory Results
08/19/24 05:31
08/17/24 19:36
Vital Signs
Temp Pulse Resp BP Pulse Ox
98.3 F 61 18 136/76 99
08/19/24 08:56 08/19/24 08:56 08/19/24 08:56 08/19/24 08:56 08/18/24 02:31
VSS afeb Afeb since 08/17
Appearance: NAD
cor regular rate
lungs: clear bilaterally
Breast:
Abd: soft NDNT fundus NT
ext: no calf pain or tenderness
Labs:
AST 23
ALT 21 (down from 48) creatinine 0.4
blood cultures neg x 2 x 48hrs.
genital culture pending
urine culture negative/mixed yelitza.
--- NOTE | 2024-08-19 14:18 | PTCARENOTE ---
1300 Lovenox being held until pt's comes back in. Dr. Allen explained lovenox and the need for the medicine to pt and her through the language line. Pt wants to wait for to come in before deciding to take it or not. Case
management - Dori was notified and the case was dicussed. She will be visiting shortly.
[2024-08-19 15:59] VITALS: BP 104/70
--- NOTE | 2024-08-19 16:11 | CM ---
Addendum entered by Anya Gore 08/19/24 16:39:
Call to spouse, left VM with update regarding referrals to VN agencies, will likely not have accepting VN agency until tomorrow/Wednesday. Referrals placed.
Original Note:
CM reviewed chart, patient seen in hallway with Nurse. Patient recently discharged from hospital on IV antibiotics. Patient reports concerns regarding insurance- reports patient had insurance coverage until 08/07, resubmitted renewal
to insurance and called for update, informed it is still pending.
Depending on medications patient will be discharged on, CM will call pharmacy to obtain cost/insurance coverage. OBS form verbally reviewed, provided with copy, placed in chart.
Plan; home with when stable
[2024-08-19] MEDS: EMLA CREAM 1 GRAM TOPICAL (17:47)
[2024-08-19] MEDS: LOVENOX 60 MG SC (17:54)
[2024-08-19] MEDS: DYNAPEN 500 MG PO (17:55)
--- NOTE | 2024-08-19 18:18 | PTCARENOTE ---
17:30 pm Hematology MD at bedside using reed cleaner device.Discussion held with patient's and patient regarding anticoagulation options.Risks, benefits oral versus injectables and alternatives of blood thinners were reviewed by MD, including
the current use of Lovenox. Explored the possibility of applying topical Emala cream to skin prior to injection site to improve tolerance of needle insertion. Patient and verbalized understanding, and will proceed with scheduled Lovenox
injection at 6pm.
--- NOTE | 2024-08-19 18:41 | W.PN.UPDATE ---
Update Note
Progress Note Update
Spoke with Dr. Marroquin regarding patient. Dr. Marroquin was here to see pt.
Per Dr. Marroquin pt agreeable to using emla prior to injection.
Was given option if unable or unwilling to take lovenox to stop BF and take eliquis. She agreed to take lovenox.
Since it is weekend, likely will not be able to get VN per lining caser.
will need to be taught to give lovenox. Next injection will not be until am. They agree to stay so RN can observe his proper technique in giving med.RN instructing him on instructions/technique.
--- NOTE | 2024-08-19 19:00 | PTCARENOTE ---
Patient receive 6 pm scheduled lovenox dose administered by nurse. pt tolerated the process well. verbally demonstrated by nurse correct injection technique, indicating readiness for home administration. Educated pt on Application of EMLA
cream prior of injection to improve tolerance of needle insertion.patient and verbalized understanding.
[2024-08-19 19:44] VITALS: BP 112/63
--- NOTE | 2024-08-19 21:19 | W.PN.ONC2 ---
Today's Communication / Plan
-
Pt/ now amenable to Lovenox, he needs to learn injection technique.
No objection to D/C once he demonstrates that he can give injection and that pt can tolerate the injections.
Impression
Impression
19yo F s/p C section 07/24/2024 c/b post opeative endometriosis, bacteremia treated with abx now admitted with a provoked acute thrombophlebitis of the right gonadal vein
Plan
Plan
Recommend 3 months' anticoagulation.
Long discussion with pt and using [place]ian interpreter and translator.
Discussed that Lovenox is the best option for her so that she can breastfeed without harm to baby.
Baby so far not able to latch on so she is pumping and then bottle-feeding baby. If would be an option to pump, then waste the milk for the next 3 months, then resume .
DId not present option of IVC filter as issue with gonadal vein thrombosis would be complications from chronic clot in pelvis such as pelvic congestion syndrome.
Offered pt option of initially taking Ativan or Xanax at the time of Lovenox injection, the couple are not interested. We also discussed using EMLA cream prior to injection.
Pt indicates that if the Lovenox and continue breast feeding would be best for baby, she is amenable.
to learn injection technique.
EMLA cream ordered in case they want to try it. Please provide Rx at D/C.
Subjective/Objective
Chief Complaint
Heme/Onc follow up of gonadal vein clot
Subjective
Pt with needle phobia. She and want to discuss options for management of gonadal vein thrombosis.
Vital Signs:
Vital Signs
Temp Pulse Resp BP Pulse Ox
98.4 F 68 18 112/63 99
08/19/24 19:44 08/19/24 19:44 08/19/24 19:44 08/19/24 19:44 08/18/24 02:31
Lab Results:
Laboratory Data
WBC 6.3 10^3/uL (4.8-10.8) 08/19/24 05:31
Hgb 10.3 g/dL (12.0-16.0) L 08/19/24 05:31
Plt Count 446 10^3/uL (130-400) H 08/19/24 05:31
PT 14.2 Sec (11.4-14.6) 08/18/24 15:17
INR 1.07 08/18/24 15:17
APTT 39.2 Sec (23.4-35.0) H 08/18/24 15:17
eGFR > 60.00 08/17/24 19:36
Physical Exam
Awake, alert, non-toxic
Orders
Orders
Orders From Last 24 Hours
08/19/24 16:30
Lidocaine 2.5%/Prilocaine 2.5% [Emla Cream] 1 gram TOPICAL PRN PRN
[2024-08-20] MEDS: DYNAPEN 500 MG PO ×2 (00:29→06:15)
[2024-08-20 00:30] VITALS: BP 114/55
[2024-08-20] MEDS: EMLA CREAM 1 GRAM TOPICAL (06:15)
[2024-08-20] MEDS: LOVENOX 60 MG SC (06:16)
--- NOTE | 2024-08-20 07:49 | W.PN.OBG.DWH ---
Today's Communication / Plan
-
dc home today
Assessment/Plan
-
right breast mastitis- dicloxacillin QID for dc
Stable for dischage home today
Pt to call if any fever chills, worsening symptoms.
Reviewed dc instructions
has demonstrated ability to adminsite lovenox with RN this am. He expresses feeling comfortable doing this. Rx sent to pharm for lovenox and emla as well and dicloxacillin
Subjective Data
-
Feeling well today
No fever, chills, or other concerns.
Breast pain is better.
Objective Data
-
Laboratory Results
08/19/24 05:31
08/17/24 19:36
Vital Signs
Temp Pulse Resp BP Pulse Ox
98.4 F 70 16 114/55 99
08/20/24 00:30 08/20/24 00:30 08/20/24 00:30 08/20/24 00:30 08/18/24 02:31
VSS afeb BP 114/55 P 70 Temp 98
Breasts without erythema, minimal tenderness right breast
cor regular rate
abd: soft NDNT fundus nt
ext: no calf pain
BC neg x2
urine culture neg
genital culture still pending
[2024-08-20 08:10] VITALS: BP 128/56
--- NOTE | 2024-08-20 08:14 | PTCARENOTE ---
Pt D/C home by Dr Allen today, case Management notified about VN, referral sende to Agency family will be notified by case Management about status of visit by nurses at home, spoke to Dori today. all teaching with and pt on how to give the
injection and precaution done by night nurse with dose give at 6 am.
--- NOTE | 2024-08-20 08:54 | PTCARENOTE ---
All discharge instruction and teaching done with pt and , using translated global Stan. printing material given to . Pt and had no questions at hie time. Case Management notified would like to talk to her.Dori notified
and she will call him.
--- NOTE | 2024-08-20 08:59 | CM ---
CM reviewed chart, reviewed with Nurse. CM spoke with patients , discussed [facility] accepted patient for VN services. inquiring about insurance coverage with new medication, reports pharmacy does not open until 10:00 a.m. and
will be discharging before then, will call CM if any issues.
Plan; home with [facility] HERNANDEZ
[facility]
[2024-08-20] MEDS: PRENATAL PLUS 1 TABLET PO (09:00)
--- NOTE | 2024-08-21 14:19 | VNURNOTE ---
Late entry: Rec'ed info from Diet Supervisor Veronica to double check referral made over weekend. Per VN notes, [facility] accepted patient and called spouse to arrange first home visit. HERNANDEZ Valiente spoke to pt's spouse who declined [facility] services stating he
felt comfortable giving Lovenox injections. Patient not admitted to [facility]. CM updated via [employer].
--- NOTE | 2024-08-21 14:52 | CM ---
Call from Lesli post dc and pt denied for service as pt post-
Discussion with Catia/DAINA- spouse declined service with VN as he feels comfortable with Lovenox injections
[2024-08-21 19:57] LABS: Beta-2-Glycoprotein I Ab. IgG <10 SGU (<=20); Beta-2-Glycoprotein I Ab. IgM <10 SMU (<=20)
[2024-08-23 16:18] LABS: Anticoagulant Med Neutralizati Not Performed (Not Performed); Neutralized dRVTT Screen Ratio Not Performed (<=1.20); Prothrombin Time 14.8 s (12.0-15.5); dRVTT 1.1 Mix Ratio Not Performed (<=1.20); dRVTT Confirmation Ratio Not Performed (<=1.20); dRVTT Screen Ratio 1.01 (<=1.20)
== END 2024-08-20 10:54 | disposition home or self-care (01) ==
LOC: LDRP 01:38
PROVIDERS: Nurse Practitioner Acute Care; Obstetrics & Gynecology; ADMITTING PHYSICIAN Obstetrics & Gynecology; CONSULT PHYSICIAN Internal Medicine Hematology & Oncology; EMERGENCY PHYSICIAN Emergency Medicine; FAMILY PHYSICIAN Family Medicine
DX: O91.22 Nonpurulent mastitis associated with the puerperium (principal); O87.1 Deep phlebothrombosis in the puerperium
CPT/HCPCS: 71046; 74177; 76856; 80053; 81003; 81015; 83605; 84703; 85025; 85379; 85610; 85613; 85730; 86146; 86147; 87040; 87070; 87086; 93005; 94760; 96361; 96365; 96375; 99285; Q9967